=== PATIENT | male | born 1980 | race African-American/Black ===

== ENCOUNTER 2016-12-11 17:42 | Inpatient (IN) | payer OTHER ==
[~2016-12-11] VITALS: Ht 175.3 cm; Wt 113.0 kg
[~2016-12-11 17:42] MED LIST: IBUP600T26 PO; MELO7.5; Z.0.NO CURRENT MEDS
[2016-12-11 18:10] VITALS: BP 174/109; PULSE 112; RESP 18; TEMP 100; O2SAT 97
--- NOTE | 2016-12-11 18:35 | PD ---
HPI Chief Complaint: Psychiatric Symptoms Time Seen by Provider: 18:35 Travel History International Travel<30 days: No Contact w/Intl Traveler<30days: No Traveled to known affect area: No History of Present Illness HPI 36-year-old male with history of bipolar disorder and paranoia, presents to the emergency department under an exparte for evaluation. Per report, patient has been having increasingly bizarre behavior. Patient states that he is a child of God and has found the grijalva to unlock the Bible. He tells me he is here to "save us." Denies suicidal or homicidal ideations. Patient denies a psychiatric history and states he is not to take any medication. Denies any acute medical needs. Denies illicit drug use or alcohol consumption. Patient has no other symptoms to report. PFSH Past Medical History Medical History: Unable to Obtain Bipolar Disorder: Yes Diminished Hearing: No Immunizations Current: No Tetanus Vaccination: Unknown Past Surgical History Surgical History: Unable to Obtain Social History Alcohol Use: No (UTO) Tobacco Use: Yes (UTO) Substance Use: No (UTO) Allergies-Medications (Allergen,Severity, Reaction): Coded Allergies: No Known Allergies (Verified , 12/11/16) Reported Meds & Prescriptions Reported Meds & Active Scripts Active Active Prescriptions or Reported Medications Unobtainable Review of Systems ROS Limitations: Psychotic Except as stated in HPI: all other systems reviewed are Neg Physical Exam Exam Limitations: Psychotic Narrative GENERAL: Well-nourished male patient, ambulatory and in no acute distress SKIN: Focused skin assessment warm/dry. HEAD: Atraumatic. Normocephalic. EYES: Pupils equal and round. No scleral icterus. No injection or drainage. ENT: No nasal bleeding or discharge. Mucous membranes pink and moist. NECK: Trachea midline. No JVD. CARDIOVASCULAR: Regular rate and rhythm. No murmur appreciated. RESPIRATORY: No accessory muscle use. Clear to auscultation. Breath sounds equal bilaterally. GASTROINTESTINAL: Abdomen soft, non-tender, nondistended. Hepatic and splenic margins not palpable. MUSCULOSKELETAL: No obvious deformities. No clubbing. No cyanosis. No edema. NEUROLOGICAL: Awake and alert. No obvious cranial nerve deficits. Motor grossly within normal limits. Normal speech. PSYCHIATRIC: Bizarre affect and mood Data Data Last Documented VS Vital Signs Date Time Temp Pulse Resp B/P Pulse Ox O2 Delivery O2 Flow Rate FiO2 12/11/16 18:10 100.0 112 18 174/109 97 Orders Complete Blood Count With Diff (12/11/16 18:33) Basic Metabolic Panel (Bmp) (12/11/16 18:33) Psych Screen (12/11/16 18:33) Drug Screen, Random Urine (12/11/16 18:33) Alcohol (Ethanol) (12/11/16 18:33) Olanzapine Inj (Zyprexa Inj) (12/11/16 20:45) Olanzapine Inj (Zyprexa Inj) (12/11/16 20:44) Labs Laboratory Tests Test 12/11/16 18:47 White Blood Count 11.8 TH/MM3 Red Blood Count 6.08 MIL/MM3 Hemoglobin 18.5 GM/DL Hematocrit 52.3 % Mean Corpuscular Volume 86.1 FL Mean Corpuscular Hemoglobin 30.5 PG Mean Corpuscular Hemoglobin 35.4 % Concent Red Cell Distribution Width 14.2 % Platelet Count 231 TH/MM3 Mean Platelet Volume 9.2 FL Neutrophils (%) (Auto) 77.7 % Lymphocytes (%) (Auto) 14.7 % Monocytes (%) (Auto) 6.9 % Eosinophils (%) (Auto) 0.1 % Basophils (%) (Auto) 0.6 % Neutrophils # (Auto) 9.2 TH/MM3 Lymphocytes # (Auto) 1.7 TH/MM3 Monocytes # (Auto) 0.8 TH/MM3 Eosinophils # (Auto) 0.0 TH/MM3 Basophils # (Auto) 0.1 TH/MM3 CBC Comment DIFF FINAL Differential Comment Sodium Level 137 MEQ/L Potassium Level 3.8 MEQ/L Chloride Level 103 MEQ/L Carbon Dioxide Level 21.7 MEQ/L Anion Gap 12 MEQ/L Blood Urea Nitrogen 20 MG/DL Creatinine 1.38 MG/DL Estimat Glomerular Filtration 71 ML/MIN Rate Random Glucose 107 MG/DL Calcium Level 9.7 MG/DL Ethyl Alcohol Level 8 MG/DL [facility] Medical Decision Making Medical Screen Exam Complete: Yes Emergency Medical Condition: Yes Medical Record Reviewed: Yes Differential Diagnosis Mood disorder versus personality disorder versus adjustment reaction disorder versus substance abuse Narrative Course 36-year-old male presents to the emergency department for psychiatric evaluation. Patient has a bizarre affect and behavior. His moods are labile here in the emergency department. He is not cooperative and unwilling to change into emergency department clothing. CBC is without acute concern. BMP is with BUN at 20, creatinine 1.38, GFR 71. Patient is encouraged to take by mouth fluids. EtOH is 8. Tox screen is ordered however has not been completed yet. Patient is medically cleared to undergo psychiatric screening for further evaluation and disposition. Mental health screening discussed with the patient. Psychiatric screen ordered. Diagnosis Primary Impression: Psychoses Qualified Code: F29 - Psychosis, unspecified psychosis type Scripts Unable to Obtain Active Prescriptions or Reported Meds Condition: Ana Maria Browning Dec 11, 2016 18:35
[2016-12-11 19:11] LABS: AUTOMATED NEUTROPHIL # 9.2 TH/MM3 (1.8-7.7); BASOPHIL # 0.1 TH/MM3 (0-0.2); BASOPHIL % 0.6 % (0.0-2.0); EOSINOPHIL % 0.1 % (0.0-4.0); HEMATOCRIT 52.3 % (39.0-51.0); HEMO FLAGS DIFF FINAL; LYMPH % 14.7 % (9.0-44.0); LYMPHOCYTE # 1.7 TH/MM3 (1.0-4.8); MEAN CELL VOLUME 86.1 FL (80.0-100.0); MEAN CORPUSCULAR HEMOGLOBIN 30.5 PG (27.0-34.0); MEAN CORPUSCULAR HGB CONC 35.4 % (32.0-36.0); MONO % 6.9 % (0.0-8.0); NEUT % 77.7 % (16.0-70.0); PLATELET COUNT 231 TH/MM3 (150-450); RED BLOOD COUNT 6.08 MIL/MM3 (4.50-5.90); RED CELL DISTRIBUTION WIDTH 14.2 % (11.6-17.2); WHITE BLOOD COUNT 11.8 TH/MM3 (4.0-11.0)
[2016-12-11 20:05] LABS: BICARBONATE 21.7 MEQ/L (21.0-32.0); POTASSIUM 3.8 MEQ/L (3.5-5.1)
[2016-12-11] MEDS ORDERED: OLANZapine IM 10 MG VIAL IM ONE ×2 (20:44→20:45)
[2016-12-11 22:36] VITALS: BP 121/60; PULSE 86; RESP 18; O2SAT 97
[2016-12-12 02:05] VITALS: BP 128/78; PULSE 62; RESP 16; O2SAT 97
[2016-12-12 06:00] VITALS: BP 161/104; PULSE 87; RESP 18; O2SAT 96
[2016-12-12 10:16] VITALS: BP 160/82; PULSE 106; RESP 20; O2SAT 90
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
[2016-12-12] MEDS ORDERED: ALUMINUM/MAGNESIUM/SIMETH 30 ML CUP PO PRN (12:00)
[2016-12-12] MEDS ORDERED: ACETAMINOPHEN 325 MG TAB PO PRN (12:00)
[2016-12-12] MEDS ORDERED: MAGNESIUM HYDROXIDE SUSP 30 ML CUP PO PRN (12:00)
[2016-12-12 12:22] VITALS: BP 139/95; PULSE 90; RESP 16; TEMP 98.7; O2SAT 97
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
[2016-12-12] MEDS ORDERED: LORazepam 2 MG TAB PO PRN (14:00)
[2016-12-12] MEDS ORDERED: OLANZapine IM 10 MG VIAL IM PRN (14:00)
[2016-12-12] MEDS ORDERED: LORazepam 1 MG TAB PO PRN (14:00)
[2016-12-12] MEDS ORDERED: LORazepam 2 MG/ML VIAL IV PUSH PRN ×4 (14:00)
[2016-12-12] MEDS ORDERED: BENZTROPINE MESYLATE 1 MG TAB PO PRN (14:00)
[2016-12-12] MEDS ORDERED: BENZTROPINE MESYLATE 2 MG/2 ML VIAL IM PRN (14:00)
[2016-12-12] MEDS ORDERED: FLUMAZENIL 0.5 MG/5 ML VIAL IV PUSH PRN (14:00)
[2016-12-12] MEDS: LORazepam 2 MG/ML VIAL IM PRN (16:58)
[2016-12-12] MEDS: HALOPERIDOL LACTATE 5 MG/ML AMP IM PRN (16:58)
[2016-12-12 18:00] VITALS: BP 144/83; PULSE 84; RESP 18; TEMP 97.7; O2SAT 96
[2016-12-12 18:18] LABS: AMPHETAMINE, URINE NEG (NEG); BARBITURATES, URINE NEG (NEG)
[2016-12-12 18:19] LABS: COCAINE, URINE NEG (NEG)
[2016-12-12] MEDS: OLANZapine ODT 15 MG TAB PO SCH (21:00)
[2016-12-13 05:56] VITALS: BP 129/68; PULSE 80; RESP 16; TEMP 97.7; O2SAT 99
[2016-12-13] MEDS: FOLIC ACID 1 MG TAB PO SCH (09:18)
[2016-12-13] MEDS: THIAMINE HCL 100 MG TAB PO SCH (09:18)
--- NOTE | 2016-12-13 09:55 | HHI.PYPN ---
Subjective Remarks Patient seen and examined. Chart reviewed. Case discussed with nursing staff. The patient required a Haldol and Ativan PRN yesterday in the early evening secondary to agitation/threatening behavior (see associated nursing note). Per nursing staff, the patient was subsequently no behavioral problem but unfortunately was not administered his Zyprexa, reportedly due to sedation. On my examination today, the patient remains frantic to be discharged. He says that he feels like he is "being robbed and held hostage." Thought process is fairly tangential, and he rambles for a time about feeling "very spiritual and everybody is color blind." Some punning and odd wordplay noted. For example, when I ask if he has been smoking cannabis in addition to cigarettes he says "I' ve been smoking too, I've been spoken to" pointing upward to the heavens. No side effects from medications. No physical complaints. Review of Systems ROS Limitations: Psychotic, Poor Historian Except as stated in HPI: all other systems reviewed are Neg Objective Alert: Yes [place]: Person, Place, Date Mood: Anxious Affect: Labile Memory Intact: Comment (not formally assessed) Hallucinations: Other (possibly some degree of audiovisual hallucinations) Delusions: Yes Delusion Type: Grandiose, Paranoid Suicidal: Ideation (no SI) Homicidal: Ideation (no HI) Insight/Judgment Poor Remarks No signs of GABAergic withdrawal noted. CIWA scores minimal. No motor abnormalities noted. Thought process tangential. Speech somewhat rambling and pressured. Grooming and hygiene fair at best. Labs Labs reviewed. EKG noted to be sinus rhythm with a QTc of 391 ms. Vitals/IOs Vital Signs Date Time Temp Pulse Resp B/P Pulse Ox O2 Delivery O2 Flow Rate FiO2 12/13/16 05:56 97.7 80 16 129/68 99 12/12/16 10:16 Room Air Assessment & Plan Problem List: (1) Bipolar disorder, current episode mixed, severe, with psychotic features ICD Code: F31.64 (2) Cannabis abuse ICD Code: F12.10 Assessment & Plan Adjust Zyprexa dosing to 1800 hrs. so that this medication can be administered by the day staff. Plan to continue to titrate this agent to effect. Continue CIWA with Ativan although this may be able to be discontinued within the next day or 2 as the patient has no signs of withdrawal. Continue to monitor on the inpatient unit. Continue other medications and care as ordered. Justification for Cont. Inpt. Impairment in reality construction. Medication changes planned. High risk for decompensation in a less restrictive environment. Discharge Planning Pending psychiatric stabilization. Request HC Surrog/Guard Advoc?: Yes Denis Lund MD Dec 13, 2016 09:55
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
[2016-12-13] MEDS ORDERED: OLANZapine IM 10 MG VIAL IM PRN (18:00)
[2016-12-13] MEDS ORDERED: OLANZapine ODT 15 MG TAB PO SCH (18:00)
[2016-12-13 18:09] VITALS: BP 164/86; PULSE 91; RESP 18; TEMP 98.1; O2SAT 97
--- NOTE | 2016-12-13 19:16 | EKG ---
Date Performed: 12/12/2016 Time Performed: 18:27:10 PTAGE: 36 years EKG: Sinus rhythm NORMAL ECG PREVIOUS TRACING : 06/22/2001 16.01 Compared to prior tracing no significant change DOCTOR: Michele Woods Interpretating Date/Time 12/13/2016 19:15:09
[2016-12-13] MEDS: ZOLPIDEM TARTRATE 5 MG TAB PO PRN ×2 (21:49→23:33)
[2016-12-14 06:05] VITALS: BP 110/58; PULSE 83; RESP 17; TEMP 97.2; O2SAT 99
[2016-12-14] MEDS: LORazepam 2 MG TAB PO PRN (08:49)
[2016-12-14] MEDS: FOLIC ACID 1 MG TAB PO SCH (08:49)
[2016-12-14] MEDS: THIAMINE HCL 100 MG TAB PO SCH (08:49)
[2016-12-14 08:55] VITALS: BP 138/79; PULSE 90; RESP 17; O2SAT 97
--- NOTE | 2016-12-14 09:48 | HHI.PYPN ---
Subjective Remarks Patient seen and examined with nurse. Chart reviewed. Case discussed with nursing staff who reports the patient remains quite paranoid. When given his medications, patient reportedly traced the shape and imprints of each tab. He also wrote a long, rambling writ of habeas, which I have reviewed in part. On my examination today, patient is internally stimulated. Thought process remains tangential. He says, "I'm humble. This is all I am doing on the outside and it's scaring the living daylights out of people." He says that he needs to keep "sunglasses on because all the world has done." He believes that the water fountain on the unit and the food is "poisoned, it'll eat your face off." He believes that the staff are contaminated with poison, too. Despite this belief, he is eating 100% of meals. Affect is somewhat expansive, and he says that he has a "beautiful mind, beautiful smile, beautiful dreams, etc." Denies side effects from medications. No physical complaints. Review of Systems ROS Limitations: Psychotic, Poor Historian Except as stated in HPI: all other systems reviewed are Neg Objective Alert: Yes [place]: Person, Place, Date Mood: Other (elevated) Affect: Other (expansive) Memory Intact: Comment (not formally assessed) Hallucinations: Other (Int stim) Delusions: Yes Delusion Type: Grandiose, Paranoid Suicidal: Ideation (no SI) Homicidal: Ideation (no HI) Insight/Judgment Poor Remarks No motor abnormalities noted. Thought process tangential. Speech rambling and a little bit pressured. Grooming and hygiene fair at best. Labs Labs reviewed. CBC from today unremarkable. CMP from today unremarkable besides mild hyperbilirubinemia. TSH within normal limits. Hemoglobin A1c pending. Vitals/IOs Vital Signs Date Time Temp Pulse Resp B/P Pulse Ox O2 Delivery O2 Flow Rate FiO2 12/14/16 08:55 90 17 138/79 97 12/14/16 06:05 97.2 12/12/16 10:16 Room Air Assessment & Plan Problem List: (1) Bipolar disorder, current episode mixed, severe, with psychotic features ICD Code: F31.64 (2) Cannabis abuse ICD Code: F12.10 Assessment & Plan Titrate Zyprexa to 10 mg twice daily with IM backup. To consider addition of a mood stabilizer. Continue to monitor on high acuity unit. Continue other medications and care as ordered. Justification for Cont. Inpt. Impairment in reality construction. Medication changes and process. High risk for decompensation in a less restrictive environment. Discharge Planning Pending psychiatric stabilization. Request HC Surrog/Guard Advoc?: Yes Denis Lund MD Dec 14, 2016 09:48
[2016-12-14 10:40] LABS: AUTOMATED NEUTROPHIL # 5.9 TH/MM3 (1.8-7.7); BASOPHIL % 0.4 % (0.0-2.0); EOSINOPHIL # 0.1 TH/MM3 (0-0.4); EOSINOPHIL % 1.8 % (0.0-4.0); HEMATOCRIT 48.4 % (39.0-51.0); HEMO FLAGS DIFF FINAL; LYMPH % 17.2 % (9.0-44.0); LYMPHOCYTE # 1.4 TH/MM3 (1.0-4.8); MEAN CELL VOLUME 87.1 FL (80.0-100.0); MEAN CORPUSCULAR HEMOGLOBIN 29.9 PG (27.0-34.0); MEAN CORPUSCULAR HGB CONC 34.4 % (32.0-36.0); MONO % 7.8 % (0.0-8.0); NEUT % 72.8 % (16.0-70.0); PLATELET COUNT 195 TH/MM3 (150-450); RED BLOOD COUNT 5.55 MIL/MM3 (4.50-5.90); RED CELL DISTRIBUTION WIDTH 13.8 % (11.6-17.2); WHITE BLOOD COUNT 8.1 TH/MM3 (4.0-11.0)
[2016-12-14] MEDS: OLANZapine ODT 10 MG TAB PO SCH ×2 (10:49→18:47)
[2016-12-14 11:13] LABS: ALT (GPT) 29 U/L (12-78); ANION GAP 8 MEQ/L (5-15); AST (GOT) 17 U/L (15-37); BICARBONATE 24.9 MEQ/L (21.0-32.0); BLOOD UREA NITROGEN 21 MG/DL (7-18); CHLORIDE 103 MEQ/L (98-107); GLOMERULAR FILTRATION RATE 88 ML/MIN (>89); POTASSIUM 3.8 MEQ/L (3.5-5.1); SODIUM (NA) 136 MEQ/L (136-145); TOTAL BILIRUBIN ADULT 1.5 MG/DL (0.2-1.0)
[2016-12-14 11:20] LABS: ALKALINE PHOSPHATASE 103 U/L (45-117); HDL CHOLESTEROL 56.3 MG/DL (40.0-60.0); LDL CHOLESTEROL 110 MG/DL (0-99)
[2016-12-14] MEDS: NICOTINE 21 MG/24 HR PATCH T-DERMAL SCH (13:00)
[2016-12-14 15:55] VITALS: BP 154/84; PULSE 84; RESP 17; TEMP 97.9; O2SAT 99
[2016-12-14 16:22] LABS: HEMOGLOBIN A1a 0.9 %; HEMOGLOBIN A1b 1.5 %; HEMOGLOBIN Ao 86.6 %; HEMOGLOBIN LA1C 1.9 %; HEMOGLOBIN P3 3.6 %
[2016-12-14] MEDS ORDERED: OLANZapine IM 10 MG VIAL IM PRN (18:00)
[2016-12-14 20:14] VITALS: BP 151/84; PULSE 101
[2016-12-14] MEDS: ZOLPIDEM TARTRATE 5 MG TAB PO PRN ×2 (22:19→23:52)
[2016-12-15 06:13] VITALS: BP 127/59; PULSE 69; RESP 16; TEMP 97.5; O2SAT 98
[2016-12-15] MEDS: FOLIC ACID 1 MG TAB PO SCH (09:00)
[2016-12-15] MEDS: NICOTINE 21 MG/24 HR PATCH T-DERMAL SCH (09:00)
[2016-12-15] MEDS: THIAMINE HCL 100 MG TAB PO SCH (09:00)
[2016-12-15] MEDS: REMOVE OLD PATCH T-DERMAL SCH (09:00)
[2016-12-15] MEDS: OLANZapine ODT 10 MG TAB PO SCH ×2 (09:00→18:00)
--- NOTE | 2016-12-15 10:26 | HHI.PYPN ---
Subjective Remarks Patient seen and examined with nurse and counselor. Chart reviewed. Case discussed with nursing staff who reports that the patient is somewhat less paranoid and more redirectable today. On my examination today, the patient remains fairly buoyant and his affect expansive. His speech is rambling and he includes a lot of extraneous details regarding the fear of poisoning he says "I' m going to leave that one alone." Makes odd statements about his numerous tattoos being camouflage. Says that his mood is "fantastic" but also describes himself as "physically disabled." When I ask about side effects from medications, patient makes a hand gesture and says, "Mmmm. Bap bap bap." He believes that the medication is causing his brain to move and strike the skull, making the sound he produces. Review of Systems ROS Limitations: Psychotic, Poor Historian Except as stated in HPI: all other systems reviewed are Neg Objective Alert: Yes [place]: Person, Place, Date Mood: Other ("fantastic") Affect: Other (expansive) Memory Intact: Comment (Not assessed) Hallucinations: Other (Remains int stim) Delusions: Yes Delusion Type: Grandiose, Paranoid Suicidal: Ideation (No SI) Homicidal: Ideation (No HI) Insight/Judgment Poor Remarks No abnormal motor movements noted. Thought process somewhat scattered with loosening of associations. Grooming and hygiene fair. Labs Test 12/14/16 10:31 White Blood Count 8.1 TH/MM3 Red Blood Count 5.55 MIL/MM3 Hemoglobin 16.6 GM/DL Hematocrit 48.4 % Mean Corpuscular Volume 87.1 FL Mean Corpuscular Hemoglobin 29.9 PG Mean Corpuscular Hemoglobin 34.4 % Concent Red Cell Distribution Width 13.8 % Platelet Count 195 TH/MM3 Mean Platelet Volume 8.9 FL Neutrophils (%) (Auto) 72.8 % Lymphocytes (%) (Auto) 17.2 % Monocytes (%) (Auto) 7.8 % Eosinophils (%) (Auto) 1.8 % Basophils (%) (Auto) 0.4 % Neutrophils # (Auto) 5.9 TH/MM3 Lymphocytes # (Auto) 1.4 TH/MM3 Monocytes # (Auto) 0.6 TH/MM3 Eosinophils # (Auto) 0.1 TH/MM3 Basophils # (Auto) 0.0 TH/MM3 CBC Comment DIFF FINAL Differential Comment Sodium Level 136 MEQ/L Potassium Level 3.8 MEQ/L Chloride Level 103 MEQ/L Carbon Dioxide Level 24.9 MEQ/L Anion Gap 8 MEQ/L Blood Urea Nitrogen 21 MG/DL Creatinine 1.15 MG/DL Estimat Glomerular Filtration 88 ML/MIN Rate Random Glucose 85 MG/DL Hemoglobin A1c 5.0 % Calcium Level 8.6 MG/DL Total Bilirubin 1.5 MG/DL Aspartate Amino Transf 17 U/L (AST/SGOT) Alanine Aminotransferase 29 U/L (ALT/SGPT) Alkaline Phosphatase 103 U/L Total Protein 8.2 GM/DL Albumin 4.0 GM/DL Triglycerides Level 103 MG/DL Cholesterol Level 187 MG/DL LDL Cholesterol 110 MG/DL HDL Cholesterol 56.3 MG/DL Cholesterol/HDL Ratio 3.32 RATIO Thyroid Stimulating Hormone 0.649 uIU/ML 3rd Gen Labs reviewed. Leukocytosis resolved. TSH within normal limits. GFR improved. Vitals/IOs Vital Signs Date Time Temp Pulse Resp B/P Pulse Ox O2 Delivery O2 Flow Rate FiO2 12/15/16 06:13 97.5 69 16 127/59 98 12/12/16 10:16 Room Air Assessment & Plan Problem List: (1) Bipolar disorder, current episode mixed, severe, with psychotic features ICD Code: F31.64 (2) Cannabis abuse ICD Code: F12.10 Assessment & Plan Add Depakote DR 500mg BID for mood stabilization. Check a VPA and ammonia level beginning of next week. Continue Zyprexa 10mg BID PO/IM. Justification for Cont. Inpt. Impairment in reality construction. Medication changes in process. High risk for decompensation in a less restrictive environment. Discharge Planning Anticipate the patient will require approximately 5-7 additional inpatient days. Request HC Surrog/Guard Advoc?: Yes Denis Lund MD Dec 15, 2016 10:26
[2016-12-15 17:00] VITALS: BP 123/58; PULSE 87; RESP 16; TEMP 97.1; O2SAT 99
[2016-12-15] MEDS: IBUPROFEN 600 MG TAB PO PRN (19:53)
[2016-12-15] MEDS: DIVALPROEX DR 500 MG TABEC PO SCH ×2 (21:00→21:20)
[2016-12-15] MEDS: ZOLPIDEM TARTRATE 5 MG TAB PO PRN ×2 (21:20→22:27)
[2016-12-16 06:04] VITALS: BP 110/55; PULSE 80; RESP 16; TEMP 97.6; O2SAT 98
[2016-12-16] MEDS: DIVALPROEX DR 500 MG TABEC PO SCH ×3 (08:26→21:25)
[2016-12-16] MEDS: FOLIC ACID 1 MG TAB PO SCH (08:26)
[2016-12-16] MEDS: OLANZapine ODT 10 MG TAB PO SCH ×2 (08:26→17:47)
[2016-12-16] MEDS: NICOTINE 21 MG/24 HR PATCH T-DERMAL SCH (08:27)
[2016-12-16] MEDS: THIAMINE HCL 100 MG TAB PO SCH (08:27)
[2016-12-16] MEDS: REMOVE OLD PATCH T-DERMAL SCH (09:00)
[2016-12-16] MEDS: HALOPERIDOL LACTATE 5 MG/ML AMP IM PRN (12:07)
[2016-12-16] MEDS: LORazepam 2 MG/ML VIAL IM PRN (12:07)
--- NOTE | 2016-12-16 16:39 | HHI.PYPN ---
Subjective Remarks Patient was seen and case discussed with nursing. Patient received an ETO this morning for yelling and aggressive behavior. Per nursing he has been delusional and paranoid believing that his food is being poisoned. He confirms these delusions and others during the interview. He is elevated intrusive and demanding. Has very poor insight into his admission and does not understand why we are not discharging him. Continues to refuse Depakote. Was offered options of different mood stabilizers including lithium but also refuse that. Objective Alert: Yes [place]: Person, Place, Date Mood: Oppositional, Other ("fantastic") Affect: Labile, Other (expansive) Memory Intact: Comment (Not assessed) Hallucinations: Other (Remains int stim) Delusions: Yes Delusion Type: Grandiose, Paranoid Suicidal: Ideation (No SI) Homicidal: Ideation (No HI) Insight/Judgment Poor Vitals/IOs Vital Signs Date Time Temp Pulse Resp B/P Pulse Ox O2 Delivery O2 Flow Rate FiO2 12/16/16 06:04 97.6 80 16 110/55 98 12/12/16 10:16 Room Air Assessment & Plan Problem List: (1) Bipolar disorder, current episode mixed, severe, with psychotic features ICD Code: F31.64 (2) Cannabis abuse ICD Code: F12.10 Assessment & Plan Continue current treatment plan Justification for Cont. Inpt. Patient will decompensate in a less restrictive setting Request HC Surrog/Guard Advoc?: Yes Matthew Bunch DO Dec 16, 2016 16:39
[2016-12-16 17:00] VITALS: BP 134/81; PULSE 86; RESP 17; TEMP 98.5; O2SAT 97
[2016-12-16] MEDS: ZOLPIDEM TARTRATE 5 MG TAB PO PRN ×2 (21:25→22:08)
[2016-12-16] MEDS: LORazepam 2 MG TAB PO PRN (22:09)
[2016-12-17 05:53] VITALS: BP 105/59; PULSE 75; RESP 18; TEMP 98; O2SAT 98
[2016-12-17] MEDS: IBUPROFEN 600 MG TAB PO PRN (08:50)
[2016-12-17] MEDS: THIAMINE HCL 100 MG TAB PO SCH (08:50)
[2016-12-17] MEDS: DIVALPROEX DR 500 MG TABEC PO SCH ×2 (08:50→21:00)
[2016-12-17] MEDS: NICOTINE 21 MG/24 HR PATCH T-DERMAL SCH (08:50)
[2016-12-17] MEDS: OLANZapine ODT 10 MG TAB PO SCH ×2 (08:50→17:35)
[2016-12-17] MEDS: LORazepam 2 MG TAB PO PRN ×2 (08:50→21:17)
[2016-12-17] MEDS: FOLIC ACID 1 MG TAB PO SCH (08:51)
[2016-12-17] MEDS: REMOVE OLD PATCH T-DERMAL SCH (08:53)
--- NOTE | 2016-12-17 16:33 | HHI.PYPN ---
Subjective Remarks Patient was seen and case discussed with nursing. Patient is markedly less psychotic today. He is no longer perseverative and intrusive. No longer thinks that the food or water water fountain is poisoned. 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 Seen playing basketball and interacting with others Objective Alert: Yes [place]: Person, Place, Date Mood: Calm Affect: Labile, Other (expansive) Memory Intact: Comment (Not assessed) Hallucinations: Other (Remains int stim) Delusions: Yes Delusion Type: Grandiose, Paranoid Suicidal: Ideation (No SI) Homicidal: Ideation (No HI) Insight/Judgment Poor Vitals/IOs Vital Signs Date Time Temp Pulse Resp B/P Pulse Ox O2 Delivery O2 Flow Rate FiO2 12/17/16 05:53 98.0 75 18 105/59 98 Assessment & Plan Problem List: (1) Bipolar disorder, current episode mixed, severe, with psychotic features ICD Code: F31.64 (2) Cannabis abuse ICD Code: F12.10 Assessment & Plan Continue current treatment plan Justification for Cont. Inpt. Patient will decompensate in a less restrictive setting Request HC Surrog/Guard Advoc?: Yes Matthew Bunch DO Dec 17, 2016 16:33
[2016-12-17 19:45] VITALS: BP 102/58; PULSE 73; RESP 18; TEMP 97.2; O2SAT 99
[2016-12-17] MEDS: ZOLPIDEM TARTRATE 5 MG TAB PO PRN (21:17)
[2016-12-18 05:42] VITALS: BP 118/60; PULSE 62; RESP 17; TEMP 97.2; O2SAT 97
[2016-12-18] MEDS: FOLIC ACID 1 MG TAB PO SCH (08:47)
[2016-12-18] MEDS: THIAMINE HCL 100 MG TAB PO SCH (08:47)
[2016-12-18] MEDS: OLANZapine ODT 10 MG TAB PO SCH (08:47)
[2016-12-18] MEDS: REMOVE OLD PATCH T-DERMAL SCH (08:48)
[2016-12-18] MEDS: NICOTINE 21 MG/24 HR PATCH T-DERMAL SCH (08:48)
[2016-12-18] MEDS: DIVALPROEX DR 500 MG TABEC PO SCH ×2 (08:48→20:55)
[2016-12-18] MEDS: HALOPERIDOL LACTATE 5 MG/ML AMP IM PRN ×2 (10:09→17:48)
[2016-12-18 10:21] LABS: BATH SALTS (MDPV) UR NEG (NEG); ECSTASY (MDMA) UR NEG (NEG); GABAPENTIN UR NEG (NEG); HEROIN (6-ACETYLMORPHINE) UR NEG (NEG); HYDROMORPHONE U NEG (NEG); K2 SPICE UR NEG (NEG); OBMETHADONE UR NEG (NEG); OXYCODONE (PERCODAN) NEG (NEG); PHENCYCLIDINE URINE NEG (NEG)
--- NOTE | 2016-12-18 11:20 | HHI.PYPN ---
Subjective Remarks Patient seen and examined with nurse. Chart reviewed. Case discussed with nursing staff. On my examination today, patient is quite discharge focused. He gets quite irritated when I explain, after speaking with him, that he is not stable enough for safe discharge, although he is able to refrain from physical aggression. Thought process remains quite loose. He says that he and his mother are "very spiritual people. When we protest people listen." He then gestures to a tattoo on his forearm and says that this is "camouflage" that allows him to walk places that I and others cannot. In context, this material seems quite psychotic. He also rambles about the government being infiltrated. He says that he no longer believes his food is poisoned. No side effects from medications. No physical complaints. Review of Systems ROS Limitations: Psychotic, Poor Historian Except as stated in HPI: all other systems reviewed are Neg Objective Alert: Yes [place]: Person, Place, Date Mood: Anxious Affect: Labile Memory Intact: Comment (Not formally assessed today) Hallucinations: Other (internally preoccupied) Delusions: Yes Delusion Type: Grandiose, Paranoid Suicidal: Ideation (No SI) Homicidal: Ideation (No HI) Insight/Judgment Poor Remarks No motor abnormalities noted. Speech somewhat rambling. Thought process with significant loosening of associations. Grooming and hygiene fair. Labs Labs reviewed. Extended urine toxicology screen negative. Vitals/IOs Vital Signs Date Time Temp Pulse Resp B/P Pulse Ox O2 Delivery O2 Flow Rate FiO2 12/18/16 05:42 97.2 62 17 118/60 97 Assessment & Plan Problem List: (1) Bipolar disorder, current episode mixed, severe, with psychotic features ICD Code: F31.64 (2) Cannabis abuse ICD Code: F12.10 Assessment & Plan Titrate Zyprexa to 15 mg twice daily for psychosis and mood stabilization. Patient refused his for several doses of Depakote, and so I will adjust the timing of the Depakote level accordingly. Continue to monitor on the high acuity unit. Continue other medications and care as ordered. Justification for Cont. Inpt. Impairment in reality construction. Medication changes in process. High risk for decompensation in a less restrictive environment. Discharge Planning Pending psychiatric stabilization Request HC Surrog/Guard Advoc?: Yes Denis Lund MD Dec 18, 2016 11:20
[2016-12-18] MEDS: SODIUM CHLORIDE 0.65% NASAL SPRAY 45 ML BTL EACH NARE PRN (17:38)
[2016-12-18] MEDS: OLANZapine ODT 15 MG TAB PO SCH (17:38)
[2016-12-18 17:53] VITALS: BP 140/81; PULSE 76; RESP 17; TEMP 98.1; O2SAT 99
[2016-12-18] MEDS: ZOLPIDEM TARTRATE 5 MG TAB PO PRN (20:56)
[2016-12-19 05:48] VITALS: BP 124/72; PULSE 66; RESP 18; TEMP 98.1; O2SAT 100
[2016-12-19] MEDS: NICOTINE 21 MG/24 HR PATCH T-DERMAL SCH (09:00)
[2016-12-19] MEDS: REMOVE OLD PATCH T-DERMAL SCH (09:00)
[2016-12-19] MEDS: OLANZapine ODT 15 MG TAB PO SCH ×2 (09:00→18:00)
[2016-12-19] MEDS: DIVALPROEX DR 500 MG TABEC PO SCH ×2 (09:05→21:02)
[2016-12-19] MEDS: THIAMINE HCL 100 MG TAB PO SCH (09:05)
[2016-12-19] MEDS: FOLIC ACID 1 MG TAB PO SCH (09:05)
[2016-12-19] MEDS: LORazepam 2 MG TAB PO PRN (12:31)
--- NOTE | 2016-12-19 13:47 | PD.TTN ---
Present for Treatment Team Treatment Team Staff: Provider (Dr. Lund), Nurse (Veronica Mohr RN), Psych Therapist (ANDREA Metcalf), Occupational Therapist (JEAN-CLAUDE Moore) Patient Problems 1. Discharge planning 2. Medication compliance 3. Knowledge deficit 4. Lack of coping skills Progress Toward Goals Provider Input: Pt appears to be showing progress on medication regiment but presents with some difficulty with regard to linear nature of thoughts. Nurse Input: Pt presents with no aggression, appears more organized, with less racing thoughts, is compliant with medication regiment and presents as no behavioral problem on unit. Psych Therapist Input: Pt appears somewhat disorganized and bizarre in thoughts but shows improvement overall including in coping skills, insight into condition and willingness to be cooperative with treatment. Pt denies any auditory hallucinations, mood symptoms or suicidal thoughts. Occupational Therapist Input: Pt attends groups regularly, is appropriate and interacts with peers well. Documentation Scribe: ANDREA Metcalf Date Resolved: Dec 19, 2016 Abe Broussard Dec 19, 2016 13:47
--- NOTE | 2016-12-19 15:15 | HHI.PYPN ---
Subjective Remarks Patient seen and examined with counselor and nurse. Chart reviewed. Case discussed in treatment team with nurse, counselor and occupational therapist. Per nursing staff, the patient is clearing up and becoming more organized. He has been no behavioral problem overnight. Counselor has reached out the patient 's mother who likewise feels he is improving and would feel comfortable excepting the patient home tomorrow, Sunday. On my examination today, patient is in good spirits. Mood seems fairly stable. Thought process remains a little loose/circumstantial, especially with prolonged questioning but overall much more linear versus admission. He denies any suicidal or homicidal ideation. Denies any audiovisual hallucinations. Denies side effects from medications. No physical complaints. Remains somewhat discharge focused. Review of Systems Except as stated in HPI: all other systems reviewed are Neg Objective Alert: Yes [place]: Person, Place, Date Mood: Calm Affect: Appropriate, Euthymic Memory Intact: Comment (intact on clinical exam) Hallucinations: Other (Denies AVH) Delusions: No Delusion Type: Other (No margarita delusions) Suicidal: Ideation (Denies SI) Homicidal: Ideation (Denies HI) Insight/Judgment Perhaps improving Remarks No motor abnormalities noted. Thought process more linear as noted above. Speech more coherent and logical. Grooming and hygiene fair. Labs Labs reviewed. No new labs. Vitals/IOs Vital Signs Date Time Temp Pulse Resp B/P Pulse Ox O2 Delivery O2 Flow Rate FiO2 12/19/16 05:48 98.1 66 18 124/72 100 Assessment & Plan Problem List: (1) Bipolar disorder, current episode mixed, severe, with psychotic features ICD Code: F31.64 (2) Cannabis abuse ICD Code: F12.10 Assessment & Plan Patient seems to be improving with Zyprexa/Depakote combination, and I will continue these as ordered. I will adjust timing of Depakote level II tomorrow morning given probable plan for discharge then, and that should likely give a reasonable approximation of his steady state Depakote level. Continue to monitor on the inpatient unit. Continue other medications and care as ordered. Justification for Cont. Inpt. Discharge planning Discharge Planning Anticipate discharge home tomorrow barring some clinical deterioration Request HC Surrog/Guard Advoc?: Yes Denis Lund MD Dec 19, 2016 15:15
[2016-12-19 18:49] VITALS: BP 139/63; PULSE 82; RESP 18; TEMP 99.1; O2SAT 98
[2016-12-19] MEDS: ZOLPIDEM TARTRATE 5 MG TAB PO PRN (21:04)
[2016-12-19] MEDS: SODIUM CHLORIDE 0.65% NASAL SPRAY 45 ML BTL EACH NARE PRN (21:05)
[2016-12-20 05:57] VITALS: BP 123/76; PULSE 67; RESP 15; TEMP 97; O2SAT 67
[2016-12-20] MEDS: REMOVE OLD PATCH T-DERMAL SCH (09:00)
[2016-12-20] MEDS: NICOTINE 21 MG/24 HR PATCH T-DERMAL SCH (09:00)
[2016-12-20] MEDS: IBUPROFEN 600 MG TAB PO PRN (10:02)
[2016-12-20] MEDS: THIAMINE HCL 100 MG TAB PO SCH (10:02)
[2016-12-20] MEDS: OLANZapine ODT 15 MG TAB PO SCH (10:02)
[2016-12-20] MEDS: LORazepam 2 MG TAB PO PRN (10:02)
[2016-12-20] MEDS: DIVALPROEX DR 500 MG TABEC PO SCH (10:02)
[2016-12-20] MEDS: FOLIC ACID 1 MG TAB PO SCH (10:03)
[2016-12-20] MEDS ORDERED: ZYPR15TA PO (10:36)
[2016-12-20] MEDS ORDERED: CARN330T PO (10:36)
[2016-12-20] MEDS ORDERED: DIVA500T PO (10:36)
--- NOTE | 2016-12-20 10:36 | HHI.DS ---
Psychiatry Discharge Summary Inpatient Psychiatric care?: Yes Advance Directive: No Reason Not Provided: Due to Patient Condition Mental Health AdvanceDirective: No Health Care Proxy: No Admission Admission Date Dec 12, 2016 at 11:51 Admission Diagnosis: (1) Bipolar disorder, current episode mixed, severe, with psychotic features ICD Code: F31.64 (2) Cannabis abuse ICD Code: F12.10 Brief History Mr. Conway is a 36-year-old male with a history of bipolar illness who presented initially under an ex parte order initiated by his mother. I reviewed disorder in detail. Patient was evaluated by psychiatric nurse practitioner who recommended admission to the inpatient psychiatric unit. I see that the patient required Zyprexa 10 mg IM yesterday while in the ED. Reviewing the electronic medical record, I see no prior psychiatric consultations or admissions within our system. Patient seen and examined. Chart reviewed. Case discussed with nurse on the inpatient psychiatric unit. [facility] report that the patient has been paranoid since arriving on the unit and tried to get into bathroom following meal to vomit up his meal because he believed there was "something in it." On my examination today, patient presents with pressured speech. He exhibits some echolalia. No posturing or stereotypies. He is somewhat fidgety and hyperkinetic. He is disinhibited and at one point shows me his buttocks. When I ask why he has come into the hospital, he tells me that he was brought in for no reason. He insists that he was sitting peaceably in his house "in silent protest," although he cannot tell me what he was protesting. He is paranoid and perseverates on the gloves worn by the techs, "those gloves are like loaded firearms." He tells me he believes "the world has put a mask on me. " He reports that his sleep and appetite are fair, although mother alleges he has been eating poorly. He denies any AVH but appears internally preoccupied. He denies any suicidal or homicidal ideation but seems distinctly unreliable to contract for safety. In addition to his paranoia, a yarsanism preoccupation as noted. Affect is labile. Remainder of the psychiatric ROS is negative. Tobacco Use In Past 30 Days: 5 or More Cigarettes/Day Alcohol Use: 4 or More Times Per Week Hospital Course The patient was admitted to a locked, inpatient psychiatric unit. Appropriate precautions were in place throughout patient's hospital stay. Patient was seen and examined daily on the unit by psychiatry and also visited by counselor. Psychotropic medications were adjusted. Patient tolerated medication changes well without side effects. Patient had significant improvement in his presenting psychiatric symptomatology during the course of his hospital stay. His mood stabilized and his presenting psychotic symptoms improved. There was no evidence of any suicidality or homicidality on the inpatient unit. The patient's behavior improved with the benefit of psychopharmacologic treatment. Counselor has reached out to patient's mother prior to discharge, and she feels that the patient is improved and appropriate for discharge home. On the day of discharge: Patient seen and examined with counselor and nurse. Chart reviewed. Case discussed with nursing staff who reports that the patient has not been a behavioral problem on the inpatient unit overnight. On my examination today, the patient is requesting discharge from the inpatient psychiatric unit. He reports his mood is stable and denies any ongoing depressive or hypomanic/manic symptoms. He denies any audiovisual hallucinations and I can elicit no delusional beliefs. He reports that he slept well and is eating well. He denies any suicidal or homicidal ideation, intent or plan. He denies side effects from medications. No physical complaints. Weighing the acute, chronic , and protective factors and based on the available evidence, I machine umbrella tipper to a reasonable degree of medical certainty that the patient is at low imminent risk of harm to self or others from a mental illness as defined under the [place] and his level of function is adequate for outpatient care. Consequently, the patient does not meet criteria for ongoing involuntary psychiatric hospitalization at this time. Given that the patient is requesting discharge today and does not meet criteria for involuntary hospitalization, I must arrange for his discharge today with psychiatric follow-up as arranged by counselor. Patient is also to follow-up with primary care. I have counseled the patient to abstain from substances of abuse including cannabis. I have counseled the patient regarding warning signs for need to return to the psychiatric emergency room as part of a general safety plan. Results Blood Pressure 123 / 76 Vital Signs Date Time Temp Pulse Resp B/P Pulse Ox O2 Delivery O2 Flow Rate FiO2 12/20/16 05:57 97.0 67 15 123/76 67 Laboratory Tests Test 12/20/16 09:49 Ammonia 52 MCMOL/L (11-32) Laboratory Results Test 12/20/16 09:49 Valproic Acid (Depakene) Level 68 MCG/ML (50-100) Summary of Major Lab Results Depakote level within the therapeutic range. Ammonia level mildly elevated but there are no signs of valproate-induced hyperammonemic encephalopathy. I have started the patient on Carnitor for the management of this issue and have ordered a recheck ammonia level in a week. Summary of Procedures None done Imaging None done Pending results at discharge: No Medications # of Antipsychotic meds at D/C: 1 Approp Antipsych med options 1 - Minimum of three failed multiple trials of monotherapy. 2 - Documented plan to taper to monotherapy due to previous use of multiple meds OR cross-taper in progress at D/C. 3 - Documentation of augmentation of Clozapine. 4 - Justification other than those listed in allowable values 1-3, document here : Discharge Discharge Date: Dec 20, 2016 Discharge Diagnosis: (1) Bipolar disorder, in partial remission, most recent episode mixed Diagnosis: Principal ICD Code: F31.77 (2) Cannabis abuse Diagnosis: Secondary (counseled to quit) ICD Code: F12.10 GAF on discharge is 55. Mental Status Exam at Disch Patient is casually dressed. He is well groomed. He appears to be attending to his basic needs. He is awake and alert and oriented to person, Hospital and approximate date. No evidence of any delirium or encephalopathy. No motoric abnormalities noted. Speech is within normal limits for rate, tone and volume. Language and fund of knowledge seemed average. Focus and concentration are much improved versus admission. Mood is reportedly good and stable. Affect is appropriate, full and reactive. Thought process fairly linear with no loosening of associations. No delusional material elicited. Denies any audiovisual hallucinations. Denies suicidal or homicidal ideation, intent or plan. Insight and judgment are fair to poor. Pt Condition on Discharge: Stable Discharge Disposition: Discharge Home Discharge Instructions Diet Instructions: As Tolerated, No Restrictions Activities you can perform: Weight Bearing as Deisy Scheduled Appointment: as per counselor's notes New Orders: AMMONIA - 1 Week New Medications: Levocarnitine (Metabolic Modif) (Carnitor) 330 Mg Tab 330 MG PO TID Hyperammonemia Days 15 Ref 1 TAB Olanzapine (Zyprexa) 15 Mg Tab 15 MG PO BID Mental Health Days 15 Ref [address] (Divalproex DR) 500 Mg Tabdr 500 MG PO BID Mental Health Days 15 Ref 1 TAB Discharge Time <= 30 minutes Discharge/Advance Care Plan Health Problems: (1) Bipolar disorder, current episode mixed, severe, with psychotic features (2) Cannabis abuse Goals to promote your health * To prevent worsening of your condition and complications * To maintain your health at the optimal level Directions to meet your goals Take your medications as prescribed Follow your dietary instruction Follow activity as directed Keep your appointments as scheduled Take your immunizations and boosters as scheduled If your symptoms worsen call your PCP, if no PCP go to Urgent Care Center or Emergency Room For 29/01 questions related to your inpatient stay or results of tests pending at discharge, please contact Dr. Denis Lund at Smoking is Dangerous to Your Health. Avoid second hand smoking Denis Lund MD Dec 20, 2016 10:36
== END 2016-12-20 13:10 | disposition home or self-care (01) | DRG 885 ==
LOC: NEPE 17:42 → NEDA 12-12 11:51 → H270 12-12 12:05
PROVIDERS: ADMIT Psychiatry & Neurology Psychiatry; ATTEND Psychiatry & Neurology Psychiatry
DX: F31.77 Bipolar disorder, in partial remission, most recent episode mixed (principal); F12.10 Cannabis abuse, uncomplicated
CPT/HCPCS: 80048; 80053; 80061; 80164; 80307; 82140; 83036; 84443; 85025; 93005; 96372; G0481; J1630; J2060; L1810

== ENCOUNTER 2017-01-26 15:45 | Inpatient (IN) | payer SELFPAY ==
[~2017-01-26] VITALS: Ht 175.3 cm; Wt 116.9 kg
[~2017-01-26 15:45] MED LIST changes: +CARN330T PO; +DIVA500T PO; -IBUP600T26 PO; -MELO7.5; -Z.0.NO CURRENT MEDS; +ZYPR15TA PO
--- NOTE | 2017-01-26 17:09 | PD ---
HPI . [facility]/ agitated behavior Chief Complaint: exparte/agitated behavior Time Seen by Provider: 17:09 Travel History International Travel<30 days: No Contact w/Intl Traveler<30days: No Traveled to known affect area: No History of Present Illness HPI 36-year-old male brought in under [facility] for disruptive and agitated behavior. Apparently patient has made some remarks to his mom and members of his community stating that the world is ending in 7 days. He told his mom that he was going to kill her and himself because the affordable with ending and that they would go to a better place with his father who is . Patient tells me that he is been entangled with the system for quite some time and that he is unable to hold a job. He says he is also lost his kids as a consequence of his behaviors. He tells me all of his behaviors are related to him being involved with the system and being given medications and mistreated his whole life. He denies any medical complaints. He denies any suicide or homicidal ideation. He also denies any depression or abnormal behaviors. He tells me that he has to act out in this matter because nobody listens to him unless he "releases the evil." PFSH Past Medical History Bipolar Disorder: Yes Anxiety: No Depression: No Diminished Hearing: No Psychiatric: Yes Immunizations Current: No Social History Alcohol Use: No (UTO) Tobacco Use: Yes (UTO) Substance Use: Yes (marijuana "always") Allergies-Medications (Allergen,Severity, Reaction): Coded Allergies: No Known Allergies (Verified , 12/11/16) Reported Meds & Prescriptions Reported Meds & Active Scripts Active Carnitor (Levocarnitine (Metabolic Modif)) 330 Mg Tab 330 Mg PO TID 15 Days Zyprexa (Olanzapine) 15 Mg Tab 15 Mg PO BID [address] (Divalproex Sodium) 500 Mg Tabdr 500 Mg PO BID 15 Days Review of Systems General / Constitutional: No: Fever Eyes: No: Visual changes HENT: No: Headaches Cardiovascular: No: Chest Pain or Discomfort Respiratory: No: Shortness of Breath Gastrointestinal: No: Abdominal Pain Genitourinary: No: Dysuria Musculoskeletal: No: Pain Skin: No Rash Neurologic: No: Weakness Psychiatric: Positive: Mood Disorder, No: Depression Endocrine: No: Polydipsia Hematologic/Lymphatic: No: Easy Bruising Physical Exam Narrative GENERAL: AAO x 3, no acute distress, Well-nourished, well-developed patient. SKIN: Warm and dry. No visible rashes or bruising. multiple tattoos over body, one on the left side of upper cheek HEAD: Normocephalic and atraumatic. EYES: No scleral icterus. No injection or drainage. EOM intact, ENT: No nasal drainage noted. Mucous membranes pink. Airway patent. NECK: Supple, trachea midline. No JVD. CARDIOVASCULAR: Regular rate and rhythm without murmurs, gallops, or rubs. RESPIRATORY: Breath sounds equal bilaterally. No accessory muscle use. No rhonchi or rales. GASTROINTESTINAL: Abdomen soft, non-tender, nondistended. EXTREMITIES: No cyanosis or edema. BACK: Nontender without obvious deformity. No CVA tenderness. NEURO: CN II-12 intact, oncology radiation physician strength normal b/l, UE and LE 5/5, no focal deficits PSYCH: AAO x 3, bizarre behaviors, glancing off into the distance making gestures, Data Data Orders Restraints Violent (01/26/17 16:09) Complete Blood Count With Diff (01/26/17 16:39) Comprehensive Metabolic Panel (01/26/17 16:39) Psych Screen (01/26/17 16:39) Alcohol (Ethanol) (01/26/17 16:39) Lorazepam Inj (Ativan Inj) (01/26/17 17:15) Olanzapine Inj (Zyprexa Inj) (01/26/17 19:45) Diphenhydramine Inj (Benadryl Inj) (01/26/17 19:45) Valproic Acid (Depakene) (01/26/17 16:39) Potassium Chloride (Kcl) (01/26/17 22:45) Admit Order (Ed Use Only) (01/26/17 22:52) Vital Signs (Adult) LOR.Q12H.E (01/26/17 22:52) Activity Oob Ad Margie (01/26/17 22:52) Level Of Observation (Psych) (01/26/17 22:52) Diet Regular Basic (01/27/17 Breakfast) Basic Metabolic Panel (Bmp) (01/27/17 06:00) Lipid Profile (01/27/17 06:00) Hemoglobin (Hgb) A1c (01/27/17 06:00) Drug Screen, Random Urine (01/26/17 22:52) Labs Laboratory Tests Test 01/26/17 21:15 White Blood Count 9.7 TH/MM3 Red Blood Count 5.15 MIL/MM3 Hemoglobin 15.6 GM/DL Hematocrit 45.3 % Mean Corpuscular Volume 88.1 FL Mean Corpuscular Hemoglobin 30.4 PG Mean Corpuscular Hemoglobin 34.5 % Concent Red Cell Distribution Width 13.7 % Platelet Count 205 TH/MM3 Mean Platelet Volume 8.9 FL Neutrophils (%) (Auto) 61.8 % Lymphocytes (%) (Auto) 24.3 % Monocytes (%) (Auto) 11.6 % Eosinophils (%) (Auto) 1.9 % Basophils (%) (Auto) 0.4 % Neutrophils # (Auto) 6.0 TH/MM3 Lymphocytes # (Auto) 2.4 TH/MM3 Monocytes # (Auto) 1.1 TH/MM3 Eosinophils # (Auto) 0.2 TH/MM3 Basophils # (Auto) 0.0 TH/MM3 CBC Comment DIFF FINAL Differential Comment Sodium Level 134 MEQ/L Potassium Level 3.2 MEQ/L Chloride Level 101 MEQ/L Carbon Dioxide Level 22.1 MEQ/L Anion Gap 11 MEQ/L Blood Urea Nitrogen 29 MG/DL Creatinine 1.19 MG/DL Estimat Glomerular Filtration 85 ML/MIN Rate Random Glucose 104 MG/DL Calcium Level 8.9 MG/DL Total Bilirubin 1.6 MG/DL Aspartate Amino Transf 44 U/L (AST/SGOT) Alanine Aminotransferase 38 U/L (ALT/SGPT) Alkaline Phosphatase 100 U/L Total Protein 7.8 GM/DL Albumin 4.0 GM/DL Valproic Acid (Depakene) Level LESS THAN 3 MCG/ML Ethyl Alcohol Level LESS THAN 3 MG/DL MDM Medical Decision Making Medical Screen Exam Complete: Yes Emergency Medical Condition: Yes Medical Record Reviewed: Yes Differential Diagnosis Acute psychosis, schizophrenia, depression, drug induced mood disorder Narrative Course 36-year-old male here under [facility]. I have done an evaluation and he is actually fairly cooperative at this time. He tells me that he is very anxious and needs to calm down. He requests ativan. He was very combative towards the staff and seems easily agitated by them. I have provided Ativan. Labs have been ordered. If they are within normal limits, he will be medically cleared for psych screen. 1900: Labs still pending. I discussed case with Julius Sims PA-C and asked him to review labs to medically clear patient for psych screen. Diagnosis Primary Impression: Psychoses Qualified Code: F29 - Psychosis, unspecified psychosis type Condition: Stable Phylicia Flor Jan 26, 2017 17:09
[2017-01-26] MEDS ORDERED: LORazepam 2 MG/ML VIAL IM ONE (17:15)
[2017-01-26] MEDS ORDERED: diphenhydrAMINE HCL 50 MG/ML VIAL IM ONE (19:45)
[2017-01-26] MEDS ORDERED: OLANZapine IM 10 MG VIAL IM ONE (19:45)
--- NOTE | 2017-01-26 19:47 | PD ---
Physical Exam Narrative I was asked by previous providers review patient's labs. However patient became violent while in the psych unit and I was asked to reevaluated. Patient was found to be yelling and cursing at the top of his lungs in his room toward staff having violent outburst. Patient was also noted to be pacing around his room punching himself in the chest and with his fist raised in a fighting stance getting ready to apparently fight whoever walks near him. Data Data Orders Restraints Violent (01/26/17 16:09) Complete Blood Count With Diff (01/26/17 16:39) Comprehensive Metabolic Panel (01/26/17 16:39) Psych Screen (01/26/17 16:39) Drug Screen, Random Urine (01/26/17 16:39) Alcohol (Ethanol) (01/26/17 16:39) Lorazepam Inj (Ativan Inj) (01/26/17 17:15) Olanzapine Inj (Zyprexa Inj) (01/26/17 19:45) Diphenhydramine Inj (Benadryl Inj) (01/26/17 19:45) Valproic Acid (Depakene) (01/26/17 16:39) Potassium Chloride (Kcl) (01/26/17 22:45) Labs Laboratory Tests Test 01/26/17 21:15 White Blood Count 9.7 TH/MM3 Red Blood Count 5.15 MIL/MM3 Hemoglobin 15.6 GM/DL Hematocrit 45.3 % Mean Corpuscular Volume 88.1 FL Mean Corpuscular Hemoglobin 30.4 PG Mean Corpuscular Hemoglobin 34.5 % Concent Red Cell Distribution Width 13.7 % Platelet Count 205 TH/MM3 Mean Platelet Volume 8.9 FL Neutrophils (%) (Auto) 61.8 % Lymphocytes (%) (Auto) 24.3 % Monocytes (%) (Auto) 11.6 % Eosinophils (%) (Auto) 1.9 % Basophils (%) (Auto) 0.4 % Neutrophils # (Auto) 6.0 TH/MM3 Lymphocytes # (Auto) 2.4 TH/MM3 Monocytes # (Auto) 1.1 TH/MM3 Eosinophils # (Auto) 0.2 TH/MM3 Basophils # (Auto) 0.0 TH/MM3 CBC Comment DIFF FINAL Differential Comment Sodium Level 134 MEQ/L Potassium Level 3.2 MEQ/L Chloride Level 101 MEQ/L Carbon Dioxide Level 22.1 MEQ/L Anion Gap 11 MEQ/L Blood Urea Nitrogen 29 MG/DL Creatinine 1.19 MG/DL Estimat Glomerular Filtration 85 ML/MIN Rate Random Glucose 104 MG/DL Calcium Level 8.9 MG/DL Total Bilirubin 1.6 MG/DL Aspartate Amino Transf 44 U/L (AST/SGOT) Alanine Aminotransferase 38 U/L (ALT/SGPT) Alkaline Phosphatase 100 U/L Total Protein 7.8 GM/DL Albumin 4.0 GM/DL Valproic Acid (Depakene) Level LESS THAN 3 MCG/ML Ethyl Alcohol Level LESS THAN 3 MG/DL MDM Supervised Visit with JASSON: No Narrative Course Secondary to the patient's violent and aggressive behavior, patient was medicated with Zyprexa and Benadryl for the safety of the patient and staff. Patient was seen and examined. Labs were obtained and reviewed with the exception of urine drug screen is not been set yet. Oral potassium replacement was ordered. Patient medically cleared for further treatment and evaluation by psych. Final disposition per psych. Diagnosis Primary Impression: Hypokalemia Additional Impression: Medical clearance for psychiatric admission Condition: Stable Jovany Sims Jan 26, 2017 19:47
[2017-01-26 21:42] LABS: BASOPHIL % 0.4 % (0.0-2.0); EOSINOPHIL # 0.2 TH/MM3 (0-0.4); EOSINOPHIL % 1.9 % (0.0-4.0); HEMATOCRIT 45.3 % (39.0-51.0); HEMO FLAGS DIFF FINAL; LYMPH % 24.3 % (9.0-44.0); LYMPHOCYTE # 2.4 TH/MM3 (1.0-4.8); MEAN CELL VOLUME 88.1 FL (80.0-100.0); MEAN CORPUSCULAR HEMOGLOBIN 30.4 PG (27.0-34.0); MEAN CORPUSCULAR HGB CONC 34.5 % (32.0-36.0); MONO % 11.6 % (0.0-8.0); NEUT % 61.8 % (16.0-70.0); PLATELET COUNT 205 TH/MM3 (150-450); RED BLOOD COUNT 5.15 MIL/MM3 (4.50-5.90); RED CELL DISTRIBUTION WIDTH 13.7 % (11.6-17.2); WHITE BLOOD COUNT 9.7 TH/MM3 (4.0-11.0)
[2017-01-26 22:06] LABS: ANION GAP 11 MEQ/L (5-15); AST (GOT) 44 U/L (15-37); BICARBONATE 22.1 MEQ/L (21.0-32.0); BLOOD UREA NITROGEN 29 MG/DL (7-18); CHLORIDE 101 MEQ/L (98-107); GLOMERULAR FILTRATION RATE 85 ML/MIN (>89); POTASSIUM 3.2 MEQ/L (3.5-5.1); SODIUM (NA) 134 MEQ/L (136-145)
[2017-01-26 22:07] LABS: ALT (GPT) 38 U/L (12-78)
[2017-01-26 22:09] LABS: ALKALINE PHOSPHATASE 100 U/L (45-117); TOTAL BILIRUBIN ADULT 1.6 MG/DL (0.2-1.0)
[2017-01-26] MEDS ORDERED: POTASSIUM CHLORIDE 20 MEQ CONTROLLED RELEASE TAB PO ONE (22:45)
[2017-01-26 23:06] VITALS: BP 109/70; PULSE 70; RESP 18
[2017-01-26] MEDS ORDERED: MAGNESIUM HYDROXIDE SUSP 30 ML CUP PO PRN (23:15)
[2017-01-26] MEDS ORDERED: ALUMINUM/MAGNESIUM/SIMETH 30 ML CUP PO PRN (23:15)
[2017-01-26] MEDS ORDERED: ACETAMINOPHEN 325 MG TAB PO PRN (23:15)
[2017-01-26] MEDS ORDERED: LORazepam 2 MG/ML VIAL IM PRN (23:15)
[2017-01-27 01:02] VITALS: BP 131/86; PULSE 88; RESP 18; TEMP 97.5; O2SAT 100
[2017-01-27 06:01] VITALS: BP 117/59; PULSE 77; RESP 16; TEMP 97.9; O2SAT 98
[2017-01-27] MEDS ORDERED: LEVOCARNITINE 330 MG TAB PO SCH (09:00)
[2017-01-27] MEDS: DIVALPROEX DR 500 MG TABEC PO SCH ×2 (09:05→20:38)
--- NOTE | 2017-01-27 11:32 | HHI.HP ---
Provisional Diagnosis Admission Date Jan 26, 2017 at 22:54 Smith I. Bipolar disorder vs schizoaffective disorder Smith II. Deferred Smith III. No significant medical history Certification of Person's Competence To Provide Express and Informed Consent I have personally examined Alonso Conway , a person being served at [facility] on, Jan 27, 2017 11:14. Express and informed consent means consent voluntarily given in writing, by a competent person, after sufficient explanation and disclosure of the subject matter involved to enable the person to make a knowing and willful decision without any element of force, fraud, deceit, duress, or other form of constraint or coercion. This person is 18 years of age or older, is not now known to be incompetent to consent to treatment with a guardian advocate, and does not have a health care surrogate or proxy currently making medical treatment decisions. I have found this person to be one of the following: [] Competent to provide express and informed consent, as defined above, for voluntary admission to this facility and is competent to provide express and informed consent for treatment. He/she has the consistent capacity to make well reasoned, willful, and knowing decisions concerning his or her medical or mental health treatment. The person fully and consistently understands the purpose of the admission for examination/placement and is fully capable of personally exercising all rights assured under [place] [] Incompetent to provide express and informed consent to voluntary admission, and this is incompetent to provide express and informed consent to treatment. The person must be transferred to involuntary status and a petition for a guardian advocate filed with the Circuit Court. [X] Refusing to provide express and informed consent to voluntary admission but is competent to provide express and informed consent for treatment. The person must be discharged or transferred to involuntary status. Form shall be completed within 24 hours of a person's arrival at the receiving facility and filed in the clinical record of each person: 1. Admitted on a voluntary basis 2. Permitted to provide express and informed consent to his/her own treatment 3. Allowed to transfer from involuntary to voluntary status 4. Prior to permitting a person to consent to his or her own treatment after having been previously found incompetent to consent to treatment. History of Present Illness Capacity: Has Capacity HPI The patient is a 36-year-old man, domiciled with his mother, single, unemployed, with psychiatric history of bipolar disorder, multiple psychiatric hospitalizations, last hospitalization was here about a month ago under the care of Dr. Lund, recommendation was reviewed, noncompliant with medications, no significant medical history, brought in under [facility] for disruptive and agitated behavior. Apparently patient has made some remarks to his mom and members of his community stating that the world is ending in 7 days. He told his mom that he was going to kill her and himself because the affordable with ending and that they would go to a better place with his father who is . As per ER doctor documentation Patient tells me that he is been entangled with the system for quite some time and that he is unable to hold a job. He says he is also lost his kids as a consequence of his behaviors. He tells me all of his behaviors are related to him being involved with the system and being given medications and mistreated his whole life. He denies any medical complaints. He denies any suicide or homicidal ideation. He also denies any depression or abnormal behaviors. He tells me that he has to act out in this matter because nobody listens to him unless he "releases the evil." Posteriorly in the ER patient became agitated and aggressive needing IM medications to calm down. Today on psychiatric evaluation patient is found in his bed in the 2700 unit, he is easily arousable, patient immediately requests to be discharged as soon as possible. Patient says that he is not going to answer any question at least he is discharged right now. Patient seems to be oddly related, internally preoccupied, unpredictable. I try to explain in order to determine my next step he needs to answer some questions, but he says that he is tired to talk he is want to leave the hospital. When I asked him the reason he is here he says "Earline brought me here, I believe in earline, do you know what is a given person". When he was asked to elaborate about this idea is started coursing and threatening to get out of his bed and show my "my force". He was finally verbally deescalated. Review of Systems Constitutional: DENIES: Diaphoretic episodes, Fatigue, Fever, Weight gain, Weight loss, Chills, Dizziness, Change in appetite, Night Sweats Endocrine: DENIES: Heat/cold intolerance, Polydipsia, Polyuria, Polyphagia Eyes: DENIES: Blurred vision, Diplopia, Eye inflammation, Eye pain, Vision loss , Photosensitivity, Double Vision Ears, nose, mouth, throat: DENIES: Tinnitus, Hearing loss, Vertigo, Nasal discharge, Oral lesions, Throat pain, Hoarseness, Ear Pain, Running Nose, Epistaxis, Sinus Pain, Toothache, Odynophagia Respiratory: DENIES: Apneas, Cough, Snoring, Wheezing, Hemoptysis, Sputum production, Shortness of breath Gastrointestinal: DENIES: Abdominal pain, Black stools, Bloody stools, Constipation, Diarrhea, Nausea, Vomiting, Difficulty Swallowing, Anorexia Musculoskeletal: DENIES: Joint pain, Muscle aches, Stiffness, Joint Swelling, Back pain, Neck pain Integumentary: DENIES: Abnormal pigmentation, Nail changes, Pruritus, Rash Hematologic/lymphatic: DENIES: Bruising, Lymphadenopathy Immunologic/allergic: DENIES: Eczema, Urticaria Neurologic: DENIES: Abnormal gait, Headache, Localized weakness, Paresthesias, Seizures, Speech Problems, Tremor, Poor Balance Psychiatric: DENIES: Anxiety, Confusion, Mood changes, Depression, Hallucinations, Agitation, Suicidal Ideation, Homicidal Ideation, Delusions Past Psych History Violence risk - others (6 mos) Elevated Violence risk - self (6 mos) Elevated Substance Abuse History Drugs/Alcohol past 12 months Patient reports using marijuana, alcohol, cocaine occasionally Past Family Social History Coded Allergies: No Known Allergies (Verified , 12/11/16) Active Scripts Levocarnitine (Metabolic Modif) (Carnitor)330 Mg [id number] Mg PO TID 15 Days Ref 1 Prov:Denis Lund MD 12/20/16 Olanzapine (Zyprexa)15 Mg Tab15 Mg PO BID 15 Days Ref 1 Prov:Denis Lund MD 12/20/[address] 500 Mg [id number] Mg PO BID 15 Days Ref 1 Prov:Denis Lund MD 12/20/16 Current Medications Medications (Trade) Dose Ordered Sig/Narda Route Start Time Stop Time Status Last Admin (Ativan) 1 mg Q6H PRN PO 01/26/17 23:15 (Ativan Inj) 1 mg Q6H PRN IM 01/26/17 23:15 (Tylenol) 650 mg Q4H PRN PO 01/26/17 23:15 (Milk Of Magnesia Liq) 30 ml DAILY PRN PO 01/26/17 23:15 (Mag-Al Plus Susp Liq) 30 ml Q6H PRN PO 01/26/17 23:15 (Depakote Dr) 500 mg BID PO 01/27/17 09:00 01/27/17 09:05 (ZyPREXA) 15 mg BID PO 01/27/17 09:00 01/27/17 09:05 Patient Own Medication PT OWN MED: LEVOCARNITINE 330MG TAB TID PO 01/27/17 09:00 Hold Family History No family psychiatric history Social History Patient was born in [facility], he lives in [place] with his mother, he is unemployed, highest level of education is 12th Patient's Strengths (min. 2) Family support Physical Exam Unable to be performed due to level of psychosis and aggressiveness Vital Signs Vital Signs Date Time Temp Pulse Resp B/P Pulse Ox O2 Delivery O2 Flow Rate FiO2 01/27/17 06:01 97.9 77 16 117/59 98 Lab Results Labs Laboratory Tests Test 01/26/17 21:15 White Blood Count 9.7 TH/MM3 Red Blood Count 5.15 MIL/MM3 Hemoglobin 15.6 GM/DL Hematocrit 45.3 % Mean Corpuscular Volume 88.1 FL Mean Corpuscular Hemoglobin 30.4 PG Mean Corpuscular Hemoglobin 34.5 % Concent Red Cell Distribution Width 13.7 % Platelet Count 205 TH/MM3 Mean Platelet Volume 8.9 FL Neutrophils (%) (Auto) 61.8 % Lymphocytes (%) (Auto) 24.3 % Monocytes (%) (Auto) 11.6 % Eosinophils (%) (Auto) 1.9 % Basophils (%) (Auto) 0.4 % Neutrophils # (Auto) 6.0 TH/MM3 Lymphocytes # (Auto) 2.4 TH/MM3 Monocytes # (Auto) 1.1 TH/MM3 Eosinophils # (Auto) 0.2 TH/MM3 Basophils # (Auto) 0.0 TH/MM3 CBC Comment DIFF FINAL Differential Comment Sodium Level 134 MEQ/L Potassium Level 3.2 MEQ/L Chloride Level 101 MEQ/L Carbon Dioxide Level 22.1 MEQ/L Anion Gap 11 MEQ/L Blood Urea Nitrogen 29 MG/DL Creatinine 1.19 MG/DL Estimat Glomerular Filtration 85 ML/MIN Rate Random Glucose 104 MG/DL Calcium Level 8.9 MG/DL Total Bilirubin 1.6 MG/DL Aspartate Amino Transf 44 U/L (AST/SGOT) Alanine Aminotransferase 38 U/L (ALT/SGPT) Alkaline Phosphatase 100 U/L Total Protein 7.8 GM/DL Albumin 4.0 GM/DL Valproic Acid (Depakene) Level LESS THAN 3 MCG/ML Ethyl Alcohol Level LESS THAN 3 MG/DL Mental Status Examination Appearance man, poor hygiene, poorly cooperative, irritable Speech: Hesitant Orientation: x3 Memory: Unremarkable Thought Process: Goal Directed, Loose Association Thought Content: Bizarre thinking, Paranoid Language Adequate use of language Fund of Knowledge Unable to be assessed due to level of psychosis Hallucination Type: None Attention and Concentration: Good Suicidal Ideation: No Previous Suicide Attempts: No (denies) Homicidal Ideation: No Previous Homicide Attempts: No Insight: Poor Judgment: Poor Affect: Irritable, Oppositional Affect if Inappropriate: Flat Mood: Angry Motor Activity: Normal gait Assessment & Plan Problem List: (1) Psychoses Assessment & Plan: The patient is a 36-year-old man with psychiatric history of bipolar disorder, multiple psychiatric hospitalizations, last hospitalization was here about a month ago under the care of Dr. Lund, recommendation was reviewed, noncompliant with medications, no significant medical history, brought in under X Y[facility] for disruptive and agitated behavior. Apparently patient has made some remarks to his mom and members of his community stating that the world is ending in 7 days. He told his mom that he was going to kill her and himself because the affordable with ending and that they would go to a better place with his father who is . On psychiatric evaluation today patient seems to be oddly related, internal preoccupied, paranoid, requesting to be discharged. As per ER documentation and nursing staff patient has been aggressive and agitated, needing IM medication.. Depakote levels are suboptimal meaning the patient is not probably taking medications at home. At this moment due to the level of psychosis and unpredictable behavior patient represents a danger to self and others and needs to be admitted for psychiatric stabilization. Will consult psychiatry for second opinion. Restart olanzapine 15 mgs twice a day, Depakote 500 mg daily. Will order olanzapine 20 mg IM every 8 hours when necessary aggressive behavior and agitation. Patient should be in assault precautions. ICD Code: F29 Assessment & Plan Estimated LOS: days Problem Qualifiers (1) Psychoses: Qualified Code: F29 - Psychosis, unspecified psychosis type Jayro Can MD Jan 27, 2017 11:32
[2017-01-27 18:08] VITALS: BP 143/85; PULSE 78; RESP 18; TEMP 97.3; O2SAT 99
[2017-01-27] MEDS: LORazepam 1 MG TAB PO PRN (20:39)
[2017-01-28 05:46] VITALS: BP 112/60; PULSE 65; RESP 18; TEMP 97.6; O2SAT 98
[2017-01-28] MEDS: DIVALPROEX DR 500 MG TABEC PO SCH ×2 (08:53→21:57)
[2017-01-28] MEDS: LORazepam 1 MG TAB PO PRN ×2 (08:55→22:21)
[2017-01-28] MEDS: OLANZapine IM 10 MG VIAL IM PRN ×2 (09:30→09:31)
--- NOTE | 2017-01-28 13:19 | HHI.PYPN ---
Subjective Remarks This is a request for second opinion. Admission note was reviewed, case discussed with nursing, and patient evaluated. Per nursing, patient has been intrusive and labile and irritable. Patient interviewed in his room and presents with an oppositional and irritable affect. Poor insight into his reasons for admission. Initially denying that psychotic statements he made but then begins by saying he is "pure evil." Continues with various grandiose delusions including that he controls the president of [employer] and we should not challenge is throne. Denies suicidal or homicidal ideation intent or plan. Objective Alert: Yes [place]: Person, Place Mood: Agitated, Angry, Oppositional Affect: Restricted Memory Intact: Immediate (not formally assessed) Hallucinations: Auditory (internally stimulated) Delusions: Yes Delusion Type: Grandiose (various grandiose delusions) Suicidal: Ideation (denies) Homicidal: Ideation (denies) Insight/Judgment Poor Vitals/IOs Vital Signs Date Time Temp Pulse Resp B/P Pulse Ox O2 Delivery O2 Flow Rate FiO2 01/28/17 05:46 97.6 65 18 112/60 98 Assessment & Plan Problem List: (1) Psychoses ICD Code: F29 Assessment & Plan I agree with the first opinion to continue petition. Criteria include acute psychosis Justification for Cont. Inpt. Patient would decompensate in a less restrictive setting Problem Qualifiers (1) Psychoses: Qualified Code: F29 - Psychosis, unspecified psychosis type Matthew Bunch DO Jan 28, 2017 13:19
[2017-01-28 22:20] VITALS: BP 112/56; PULSE 86; RESP 18; TEMP 99.1; O2SAT 99
[2017-01-28] MEDS ORDERED: OLANZapine IM 10 MG VIAL IM PRN (23:15)
[2017-01-29 05:52] VITALS: BP 103/51; PULSE 70; RESP 18; TEMP 97.9; O2SAT 100
[2017-01-29] MEDS: DIVALPROEX DR 500 MG TABEC PO SCH ×2 (09:17→21:17)
[2017-01-29 11:59] LABS: ANION GAP 8 MEQ/L (5-15); BICARBONATE 24.5 MEQ/L (21.0-32.0); BLOOD UREA NITROGEN 19 MG/DL (7-18); CHLORIDE 106 MEQ/L (98-107); GLOMERULAR FILTRATION RATE 113 ML/MIN (>89); POTASSIUM 3.9 MEQ/L (3.5-5.1); SODIUM (NA) 138 MEQ/L (136-145)
--- NOTE | 2017-01-29 11:59 | HHI.PYPN ---
Subjective Remarks Patient seen and examined with counselor and nurse. Chart reviewed. Case discussed with nursing staff. Patient noted to be quite religiously preoccupied. He tells me "I'm the son of God. The truth hurts and it'll drive you to suicide. I don't have no money to take care of myself." He says that he stopped his medications after leaving the hospital last time because "they' re not the real deal." He says that instead he feels that he needs to use medical marijuana. He does say he is interested in a long-acting injectable antipsychotic. Denies side effects from medications. No physical complaints. Spoke with patient's mother over the phone. She reports that after patient left the hospital last time he became rapidly medication nonadherent and started drinking and abusing opiate pain medications. He experienced psychotic decompensation and told his mother that he was going to go see his father. His mother tells me that he wanted to take mother with him to see his father and reportedly told mother matter of factly "I'm going to have to kill you" in order to make the trip. He also reportedly believes that the world will end of this . Mother is not aware of previous trials of other agents for which there is an available long-acting injectable antipsychotic but is agreeable to such a trial after discussion of the patient' s options in this regard. Review of Systems ROS Limitations: Psychotic, Poor Historian Except as stated in HPI: all other systems reviewed are Neg Objective Alert: Yes [place]: Person, Place Mood: Agitated Affect: Restricted Memory Intact: Comment (not formally assessed) Hallucinations: Auditory (frankly internally preoccupied) Delusions: Yes Delusion Type: Grandiose (believes that he is the son of God) Suicidal: Ideation (no SI but see above) Homicidal: Ideation (no HI but fairly agitated) Insight/Judgment Poor Remarks No motor abnormalities noted. Thought process scattered. Grooming and hygiene fair at best. Labs Item Value Date Time White Blood Count 9.7 TH/MM3 01/26/172114 Hemoglobin 15.6 GM/DL 01/26/172114 Platelet Count 205 TH/MM3 01/26/172114 Sodium Level 138 MEQ/L 01/29/17899 Potassium Level 3.9 MEQ/L 01/29/17899 Chloride Level 106 MEQ/L 01/29/17899 Carbon Dioxide Level 24.5 MEQ/L 01/29/17899 Anion Gap 8 MEQ/L 01/29/17899 Blood Urea Nitrogen 19 MG/DL H 01/29/17899 Creatinine 0.93 MG/DL 01/29/17899 Aspartate Amino Transf (AST/SGOT) 44 U/L H 01/26/172114 Alanine Aminotransferase (ALT/SGPT) 38 U/L 01/26/172114 Alkaline Phosphatase 100 U/L 01/26/172114 Valproic Acid (Depakene) Level LESS THAN 3 MCG/ML L 01/26/172114 Valproic Acid (Depakene) Level 64 MCG/ML 01/29/17899 Ethyl Alcohol Level LESS THAN 3 MG/DL 01/26/172114 Vitals/IOs Vital Signs Date Time Temp Pulse Resp B/P Pulse Ox O2 Delivery O2 Flow Rate FiO2 01/29/17 05:52 97.9 70 18 103/51 100 Assessment & Plan Problem List: (1) Psychoses ICD Code: F29 Assessment & Plan Add Risperdal M tabs 1 mg twice daily for additional antipsychotic action. We might consider cross tapering Zyprexa to Risperdal if well tolerated and further might consider long-acting injectable Risperdal Consta or Invega Sustenna. Continue Depakote as ordered. Continue Zyprexa PRN agitation; I have added a caution not to administer this within 60 minutes of Ativan. Cogentin as needed for EPS. Titrate Ativan PRN to 2mg/dose given the patient's size and level of agitation. Continue to monitor on the high acuity unit. Continue other medications and care as ordered. Justification for Cont. Inpt. Impairment in reality construction. Medication changes in process. High risk for decompensation in less restrictive environment. Discharge Planning Pending psychiatric stabilization. Request HC Surrog/Guard Advoc?: Yes (I will be requesting healthcare surrogate and guardian advocate as I do not believe that the patient is presently capacitated consent for medications) Problem Qualifiers (1) Psychoses: Qualified Code: F25.0 - Schizoaffective disorder, bipolar type Denis Lund MD Jan 29, 2017 11:59
[2017-01-29 12:02] LABS: HDL CHOLESTEROL 53.7 MG/DL (40.0-60.0); LDL CHOLESTEROL 80 MG/DL (0-99)
[2017-01-29] MEDS ORDERED: BENZTROPINE MESYLATE 1 MG TAB PO PRN (13:00)
[2017-01-29] MEDS ORDERED: BENZTROPINE MESYLATE 2 MG/2 ML VIAL IM PRN (13:00)
[2017-01-29 16:30] VITALS: BP 143/89; PULSE 59; RESP 18; TEMP 98.4; O2SAT 100
[2017-01-29] MEDS ORDERED: LORazepam 2 MG/ML VIAL IM PRN (17:15)
[2017-01-29 18:10] VITALS: BP 135/73; PULSE 77; RESP 18; TEMP 98.6; O2SAT 98
[2017-01-29 18:13] LABS: HEMOGLOBIN A1b 1.5 %; HEMOGLOBIN Ao 86.3 %; HEMOGLOBIN P3 3.6 %
[2017-01-29] MEDS: LORazepam 1 MG TAB PO PRN (21:16)
[2017-01-29] MEDS: risperiDONE ODT 1 MG TAB PO SCH (21:16)
[2017-01-30 06:02] VITALS: BP 125/69; PULSE 72; RESP 16; TEMP 97.5; O2SAT 99
[2017-01-30] MEDS: risperiDONE ODT 1 MG TAB PO SCH (08:30)
[2017-01-30] MEDS: DIVALPROEX DR 500 MG TABEC PO SCH ×2 (08:30→21:16)
--- NOTE | 2017-01-30 11:54 | HHI.PYPN ---
Subjective Remarks Patient seen and examined with counselor and nurse. Chart reviewed. Case discussed in treatment team. Per nursing staff, the patient is medication compliant but continues to believe that he is the son of God. On my examination today, the patient is calmer than when I saw him yesterday. He does remain somewhat interpersonally intense. He continues to say "I'm the son of God. It's freaking people out. The TV spoke the whole thing to me." Denies side effects from medications. No SI or HI. No physical complaints. Review of Systems ROS Limitations: Psychotic, Poor Historian Except as stated in HPI: all other systems reviewed are Neg Objective Alert: Yes [place]: Person, Place Mood: Other (calmer) Affect: Blunted Memory Intact: Comment (not formally assessed) Hallucinations: Auditory (internally stimulated) Delusions: Yes Delusion Type: Grandiose (continues to believe that he is the son of God), Other (ideas of reference regarding the television) Suicidal: Ideation (no SI) Homicidal: Ideation (no HI) Insight/Judgment Poor Remarks No motor abnormalities noted. Thought process linear within delusional system. Grooming and hygiene fair. Speech less pressured. Labs Labs reviewed. Vitals/IOs Vital Signs Date Time Temp Pulse Resp B/P Pulse Ox O2 Delivery O2 Flow Rate FiO2 01/30/17 06:02 97.5 72 16 125/69 99 Assessment & Plan Problem List: (1) Psychoses ICD Code: F29 Assessment & Plan Titrate Risperdal to target psychosis to 1/2mg. Continue Zyprexa and Depakote as ordered. Continue to monitor on the high acuity unit. Continue other medications and care as ordered. Justification for Cont. Inpt. Medication changes and process. Impairment in reality construction. High risk for decompensation in less restrictive environment. Discharge Planning Pending psychiatric stabilization. Request HC Surrog/Guard Advoc?: Yes Problem Qualifiers (1) Psychoses: Qualified Code: F25.0 - Schizoaffective disorder, bipolar type Denis Lund MD Jan 30, 2017 11:54
[2017-01-30] MEDS: NICOTINE 21 MG/24 HR PATCH T-DERMAL SCH (18:00)
[2017-01-30 18:04] VITALS: BP 142/77; PULSE 82; RESP 18; TEMP 98.7; O2SAT 96
[2017-01-30] MEDS ORDERED: risperiDONE ODT 2 MG TAB PO SCH (21:00)
[2017-01-30] MEDS: REMOVE OLD NICODERM (NICOTINE) PATCH T-DERMAL SCH (21:00)
[2017-01-30] MEDS: LORazepam 1 MG TAB PO PRN (21:22)
[2017-01-31 05:46] VITALS: BP 123/78; PULSE 74; RESP 17; TEMP 97.8; O2SAT 98
[2017-01-31] MEDS: DIVALPROEX DR 500 MG TABEC PO SCH ×2 (08:57→20:29)
[2017-01-31] MEDS: NICOTINE 21 MG/24 HR PATCH T-DERMAL SCH (08:57)
[2017-01-31] MEDS ORDERED: risperiDONE ODT 1 MG TAB PO SCH (09:00)
[2017-01-31] MEDS: LORazepam 1 MG TAB PO PRN ×2 (09:03→20:30)
--- NOTE | 2017-01-31 09:41 | HHI.PYPN ---
Subjective Remarks Patient seen and examined with counselor and nurse. Chart reviewed. Case discussed with nursing staff who reports that the patient has been medication seeking for benzodiazepines, particularly IM. On my examination today, the patient remains delusional. He says that he is the son of God and further says "do you want me to lie to you? I own the world." He insists "there is no violence coming from me." He remains internally stimulated. No side effects from medications. No physical complaints. Review of Systems ROS Limitations: Psychotic, Poor Historian Except as stated in HPI: all other systems reviewed are Neg Objective Alert: Yes [place]: Person, Place Mood: Calm Affect: Euthymic Memory Intact: Comment (not formally assessed) Hallucinations: Auditory (remains int stim) Delusions: Yes Delusion Type: Grandiose Suicidal: Ideation (no SI) Homicidal: Ideation (no HI) Insight/Judgment Poor Remarks Grooming and hygiene fair. No motor abnormalities noted. Labs Labs reviewed. Vitals/IOs Vital Signs Date Time Temp Pulse Resp B/P Pulse Ox O2 Delivery O2 Flow Rate FiO2 01/31/17 05:46 97.8 74 17 123/78 98 Assessment & Plan Problem List: (1) Psychoses ICD Code: F29 Assessment & Plan Titrate Risperdal to 2mg BID. We have not yet seen significant improvement in patient's delusions (presuming these are not fixed), and we have not seen side effects from antipsychotics; these two points argue against tapering Zyprexa at this time. It is possible patient will require antipsychotic polypharmacy for stabilization. To consider SZYMANSKI. Continue Depakote as ordered. Drop Ativan PRN to 1mg/dose. Continue to monitor on the high acuity unit. Continue other medications and care as ordered. Justification for Cont. Inpt. Medication changes in process. Impairment in reality construction. High risk for decompensation in less restrictive environment. Discharge Planning Pending psychiatric stabilization Request HC Surrog/Guard Advoc?: Yes Problem Qualifiers (1) Psychoses: Qualified Code: F25.0 - Schizoaffective disorder, bipolar type Denis Lund MD Jan 31, 2017 09:41
[2017-01-31] MEDS ORDERED: LORazepam 2 MG/ML VIAL IM PRN (17:15)
[2017-01-31 18:17] VITALS: BP 153/89; PULSE 90; RESP 18; TEMP 98.7; O2SAT 99
[2017-01-31] MEDS: risperiDONE ODT 2 MG TAB PO SCH (20:30)
[2017-01-31] MEDS: REMOVE OLD NICODERM (NICOTINE) PATCH T-DERMAL SCH (20:30)
[2017-02-01 05:40] VITALS: BP 135/84; PULSE 73; RESP 18; TEMP 97.2; O2SAT 98
[2017-02-01] MEDS: risperiDONE ODT 2 MG TAB PO SCH ×2 (08:33→21:25)
[2017-02-01] MEDS: DIVALPROEX DR 500 MG TABEC PO SCH ×2 (08:33→21:25)
[2017-02-01] MEDS: NICOTINE 21 MG/24 HR PATCH T-DERMAL SCH (08:33)
[2017-02-01] MEDS: LORazepam 1 MG TAB PO PRN ×2 (08:35→21:27)
--- NOTE | 2017-02-01 09:27 | HHI.PYPN ---
Subjective Remarks Patient seen case discussed with nurse. Chart reviewed. Case d/w RN. Patient noted to be labile but not aggressive by nurse. For me today, patient continues to liken himself to [place] although he does not explicitly say he is the son of God. He is irritable and argumentative. His insight into mental illness is quite poor. No motor abnormalities. No physical complaints. Mother , present at [place], reports that patient is improved with respect to his psychosis but does feel patient would benefit from further stabilization. Review of Systems ROS Limitations: Psychotic, Poor Historian Except as stated in HPI: all other systems reviewed are Neg Objective Alert: Yes [place]: Person, Place Mood: Anxious Affect: Other (irritable) Memory Intact: Comment (not formally assessed) Hallucinations: Auditory (int stim) Delusions: Yes Delusion Type: Grandiose (?lessening) Suicidal: Ideation (no SI) Homicidal: Ideation (no HI) Insight/Judgment Poor Remarks No motor abnormalities noted. Grooming and hygiene fair. Labs Labs reviewed. Vitals/IOs Vital Signs Date Time Temp Pulse Resp B/P Pulse Ox O2 Delivery O2 Flow Rate FiO2 02/01/17 05:40 97.2 73 18 135/84 98 Assessment & Plan Problem List: (1) Psychoses ICD Code: F29 Assessment & Plan Tolerating Risperdal well. Start Invega Sustenna 234mg IM today. Will plan to administer booster dose of Sustenna after weekend. Plan for relatively sky discontinuation of PO Risperdal as prolonged oral supplementation is not required with Sustenna. Continue other psychotropics as ordered. Continue to monitor on high acuity unit. Continue other meds and care as ordered. Patient' s case presented to [facility] court and case was placed in 1 week continuance with mother as healthcare surrogate. Patient would benefit from involuntary outpatient commitment in my estimation given his poor insight, and I have initiated a referral for involuntary outpatient commitment today and will consult for a second opinion. Justification for Cont. Inpt. Medication changes in process. High risk for decompensation in less restrictive environment. Discharge Planning Pending stabilization. Outpatient commitment referral. Request HC Surrog/Guard Advoc?: Yes Problem Qualifiers (1) Psychoses: Qualified Code: F25.0 - Schizoaffective disorder, bipolar type Denis Lund MD Feb 01, 2017 09:27
[2017-02-01 15:51] VITALS: BP 150/67; PULSE 86; RESP 18; TEMP 98.6; O2SAT 99
[2017-02-01] MEDS ORDERED: PALIPERIDONE PALMITATE 234 MG/1.5 ML SYRINGE IM ONE (17:00)
[2017-02-01] MEDS: REMOVE OLD NICODERM (NICOTINE) PATCH T-DERMAL SCH (21:00)
[2017-02-02 06:04] VITALS: BP 125/76; PULSE 68; RESP 16; TEMP 97.4; O2SAT 100
[2017-02-02] MEDS: NICOTINE 21 MG/24 HR PATCH T-DERMAL SCH (09:16)
[2017-02-02] MEDS: DIVALPROEX DR 500 MG TABEC PO SCH ×2 (09:16→21:05)
[2017-02-02] MEDS: risperiDONE ODT 2 MG TAB PO SCH ×2 (09:16→21:05)
--- NOTE | 2017-02-02 11:53 | HHI.PYPN ---
Subjective Remarks Patient seen and examined with counselor and nurse. Chart reviewed. Case discussed with nursing staff. No significant behavior issues. On my exam, patient complains of poor sleep. Psychotic symptoms abating, although patient remains interpersonally intense. He is med seeking for benzos, which he calls his "chill pill," and Lortab/Percocet, reportedly for chronic back pain. I offer other medications for chronic back pain, but patient tells me, "if it's not Lortab, don't bother." Denies side effects from medications besides some mild injection site discomfort from the Invega Sustenna. No physical complaints otherwise. Review of Systems ROS Limitations: Poor Historian Except as stated in HPI: all other systems reviewed are Neg Objective Alert: Yes [place]: Person, Place Mood: Calm Affect: Other (somewhat interpersonally intense) Memory Intact: Comment (not formally assessed) Hallucinations: Other (no AVH) Delusions: No Delusion Type: Other (no delusional material today) Suicidal: Ideation (no SI) Homicidal: Ideation (no HI) Insight/Judgment Poor Remarks No motor abnormalities noted. No induration, erythema or other abnormality at the injection site. Thought processes fairly linear, although little perseverative on obtaining controlled substances as I said. Labs Labs reviewed. Vitals/IOs Vital Signs Date Time Temp Pulse Resp B/P Pulse Ox O2 Delivery O2 Flow Rate FiO2 02/02/17 06:04 97.4 68 16 125/76 100 Assessment & Plan Problem List: (1) Psychoses ICD Code: F29 Assessment & Plan Adjusts Zyprexa dosing to 10/20 mg to try to help with poor sleep. Taper Risperdal to 1mg BID. Plan for booster dose of Invega Sustenna after the weekend. Continue other medications and care as ordered. Justification for Cont. Inpt. Medication changes in process. High risk for decompensation. Discharge Planning Plan to petition court for involuntary outpatient commitment. Request HC Surrog/Guard Advoc?: Yes Problem Qualifiers (1) Psychoses: Qualified Code: F25.0 - Schizoaffective disorder, bipolar type Denis Lund MD Feb 02, 2017 11:53
[2017-02-02] MEDS: LORazepam 1 MG TAB PO PRN (17:22)
[2017-02-02 17:48] VITALS: BP 122/72; PULSE 105; RESP 16; TEMP 98.2; O2SAT 99
[2017-02-02] MEDS: REMOVE OLD NICODERM (NICOTINE) PATCH T-DERMAL SCH (21:00)
[2017-02-02] MEDS: OLANZapine 10 MG TAB PO SCH (21:06)
[2017-02-03 06:10] VITALS: BP 128/85; PULSE 68; RESP 16; TEMP 97.1; O2SAT 99
[2017-02-03] MEDS: DIVALPROEX DR 500 MG TABEC PO SCH ×2 (08:39→20:41)
[2017-02-03] MEDS: risperiDONE ODT 2 MG TAB PO SCH ×2 (08:40→20:43)
[2017-02-03] MEDS: OLANZapine 10 MG TAB PO SCH ×2 (08:43→20:43)
[2017-02-03] MEDS: NICOTINE 21 MG/24 HR PATCH T-DERMAL SCH (08:43)
--- NOTE | 2017-02-03 13:06 | HHI.PYPN ---
Subjective Remarks Pt seen and discussed with staff. He continues to fixate on [place] and states he is willing to bargain and take Tramadol. "Anything else would be blowing my mind." He states that only MD and RN can tame him. He remains disorganized and loose during evaluation. He is tolerating medications without side effects. No SI/HI Objective Alert: Yes [place]: Person, Place Mood: Calm Affect: Other (intense stare) Memory Intact: Comment (not formally assessed) Hallucinations: Other (no AVH) Delusions: No Delusion Type: Other (no delusional material today) Suicidal: Ideation (no SI) Homicidal: Ideation (no HI) Insight/Judgment poor Remarks thought process somewhat loose and disorganized Vitals/IOs Vital Signs Date Time Temp Pulse Resp B/P Pulse Ox O2 Delivery O2 Flow Rate FiO2 02/03/17 06:10 97.1 68 16 128/85 99 Assessment & Plan Problem List: (1) Psychoses ICD Code: F29 Assessment & Plan Continue current tx plan. Estimated LOS: days Justification for Cont. Inpt. impairments in social functioning and thought process Request HC Surrog/Guard Advoc?: Yes Problem Qualifiers (1) Psychoses: Qualified Code: F25.0 - Schizoaffective disorder, bipolar type Trice Brennan MD Feb 03, 2017 13:06
[2017-02-03 18:00] VITALS: BP 131/84; PULSE 100; RESP 18; TEMP 98.6
[2017-02-03] MEDS: LORazepam 1 MG TAB PO PRN (20:46)
[2017-02-03] MEDS: REMOVE OLD NICODERM (NICOTINE) PATCH T-DERMAL SCH (21:00)
[2017-02-04 05:39] VITALS: BP 114/69; PULSE 67; RESP 18; TEMP 98.3; O2SAT 99
[2017-02-04] MEDS: risperiDONE ODT 2 MG TAB PO SCH ×2 (08:24→20:22)
[2017-02-04] MEDS: DIVALPROEX DR 500 MG TABEC PO SCH ×2 (08:24→20:21)
[2017-02-04] MEDS: OLANZapine 10 MG TAB PO SCH ×2 (08:26→20:22)
[2017-02-04] MEDS: NICOTINE 21 MG/24 HR PATCH T-DERMAL SCH (08:29)
--- NOTE | 2017-02-04 12:11 | HHI.PYPN ---
Subjective Remarks Pt seen and discussed with staff. He has been cooperative with treatment and medications. No disruptive behavior on unit. No SI/HI. Pt reports that mood is better today and he has not been anxious. He is more organized today and less fixated on pain meds. Objective Alert: Yes [place]: Person, Place, Date Mood: Calm Affect: Appropriate Memory Intact: Comment (intact) Hallucinations: Other (no AVH) Delusions: No Delusion Type: Other (none) Suicidal: Ideation (no SI) Homicidal: Ideation (no HI) Insight/Judgment limited Vitals/IOs Vital Signs Date Time Temp Pulse Resp B/P Pulse Ox O2 Delivery O2 Flow Rate FiO2 02/04/17 05:39 98.3 67 18 114/69 99 Assessment & Plan Problem List: (1) Psychoses ICD Code: F29 Assessment & Plan Pt improving. Continue current medication Estimated LOS: days Justification for Cont. Inpt. risk of decompensation Request HC Surrog/Guard Advoc?: Yes Problem Qualifiers (1) Psychoses: Qualified Code: F25.0 - Schizoaffective disorder, bipolar type Trice Brennan MD Feb 04, 2017 12:11
[2017-02-04 18:18] VITALS: BP 149/80; PULSE 83; RESP 18; TEMP 98.1; O2SAT 100
[2017-02-04] MEDS: REMOVE OLD NICODERM (NICOTINE) PATCH T-DERMAL SCH (20:22)
[2017-02-04] MEDS: LORazepam 1 MG TAB PO PRN (20:24)
[2017-02-05 06:13] VITALS: BP 112/64; PULSE 77; RESP 18; TEMP 97.4; O2SAT 99
[2017-02-05] MEDS: DIVALPROEX DR 500 MG TABEC PO SCH ×2 (08:40→21:15)
[2017-02-05] MEDS: risperiDONE ODT 2 MG TAB PO SCH (08:41)
[2017-02-05] MEDS: OLANZapine 10 MG TAB PO SCH ×2 (08:41→21:15)
[2017-02-05] MEDS: NICOTINE 21 MG/24 HR PATCH T-DERMAL SCH (08:53)
[2017-02-05] MEDS ORDERED: PALIPERIDONE PALMITATE 156 MG/ML SYRINGE IM ONE (10:00)
--- NOTE | 2017-02-05 11:52 | HHI.PYPN ---
Subjective Remarks Patient seen and examined with counselor and nurse. Chart reviewed. Outpatient commitment paperwork completed and is going to be filed today. On my examination today, the patient is quite discharge focused. He remains somewhat medication seeking for Ativan. No ongoing psychotic symptoms and the patient denies SI or HI. Counselor has reached out to patient's mother/ healthcare surrogate who is agreeable to having the patient return home tomorrow before the outpatient commitment hearing but would like him to be observed for at least the day after he receives his Invega Sustenna booster injection, and this does not seem unreasonable to me. Patient denies side effects from medications. No physical complaints. Review of Systems ROS Limitations: Poor Historian Except as stated in HPI: all other systems reviewed are Neg Objective Alert: Yes [place]: Person, Place, Date Mood: Calm Affect: Appropriate (fairly appropriate, somewhat interpersonally intense) Memory Intact: Comment (intact) Hallucinations: Other (denies AVH) Delusions: No Delusion Type: Other (no delusional material) Suicidal: Ideation (denies SI) Homicidal: Ideation (denies HI) Insight/Judgment Poor Remarks No abnormal motor movements noted. Thought process fairly linear. Grooming and hygiene fair. Labs Labs reviewed. Vitals/IOs Vital Signs Date Time Temp Pulse Resp B/P Pulse Ox O2 Delivery O2 Flow Rate FiO2 02/05/17 06:13 97.4 77 18 112/64 99 Assessment & Plan Problem List: (1) Psychoses ICD Code: F29 Assessment & Plan Booster dose of Invega Sustenna today. Discontinue Risperdal as Invega Sustenna does not require oral supplementation. Continue other psychotropics as ordered. Monitor overnight. Continue other medications and care as ordered. Justification for Cont. Inpt. Medication change Discharge Planning Anticipate discharge tomorrow with plan for involuntary outpatient commitment hearing . Request HC Surrog/Guard Advoc?: Yes Problem Qualifiers (1) Psychoses: Qualified Code: F25.0 - Schizoaffective disorder, bipolar type Denis Lund MD Feb 05, 2017 11:52
[2017-02-05] MEDS: LORazepam 1 MG TAB PO PRN ×2 (13:03→21:14)
[2017-02-05 18:08] VITALS: BP 133/68; PULSE 81; RESP 18; TEMP 98.6; O2SAT 99
[2017-02-05] MEDS: REMOVE OLD NICODERM (NICOTINE) PATCH T-DERMAL SCH (21:00)
[2017-02-06 06:09] VITALS: BP 130/79; PULSE 68; RESP 20; TEMP 97.3; O2SAT 99
[2017-02-06] MEDS: NICOTINE 21 MG/24 HR PATCH T-DERMAL SCH (08:39)
[2017-02-06] MEDS: DIVALPROEX DR 500 MG TABEC PO SCH (08:39)
[2017-02-06] MEDS: OLANZapine 10 MG TAB PO SCH (08:39)
[2017-02-06] MEDS ORDERED: OLAN10TA PO (09:54)
[2017-02-06] MEDS ORDERED: PALI156P IM (09:54)
[2017-02-06] MEDS ORDERED: DIVA500T PO (09:54)
--- NOTE | 2017-02-06 09:54 | HHI.DS ---
Psychiatry Discharge Summary Inpatient Psychiatric care?: Yes Advance Directive: No Reason Not Provided: Due to Patient Condition Mental Health AdvanceDirective: No Health Care Proxy: No Admission Admission Date Jan 26, 2017 at 22:54 Admission Diagnosis: (1) Psychoses ICD Code: F29 Brief History The patient is a 36-year-old man, domiciled with his mother, single, unemployed, with psychiatric history of bipolar disorder, multiple psychiatric hospitalizations, last hospitalization was here about a month ago under the care of Dr. Lund, recommendation was reviewed, noncompliant with medications, no significant medical history, brought in under [facility] for disruptive and agitated behavior. Apparently patient has made some remarks to his mom and members of his community stating that the world is ending in 7 days. He told his mom that he was going to kill her and himself because the affordable with ending and that they would go to a better place with his father who is . As per ER doctor documentation Patient tells me that he is been entangled with the system for quite some time and that he is unable to hold a job. He says he is also lost his kids as a consequence of his behaviors. He tells me all of his behaviors are related to him being involved with the system and being given medications and mistreated his whole life. He denies any medical complaints. He denies any suicide or homicidal ideation. He also denies any depression or abnormal behaviors. He tells me that he has to act out in this matter because nobody listens to him unless he "releases the evil." Posteriorly in the ER patient became agitated and aggressive needing IM medications to calm down. Today on psychiatric evaluation patient is found in his bed in the 2700 unit, he is easily arousable, patient immediately requests to be discharged as soon as possible. Patient says that he is not going to answer any question at least he is discharged right now. Patient seems to be oddly related, internally preoccupied, unpredictable. I try to explain in order to determine my next step he needs to answer some questions, but he says that he is tired to talk he is want to leave the hospital. When I asked him the reason he is here he says "Earline brought me here, I believe in earline, do you know what is a given person". When he was asked to elaborate about this idea is started coursing and threatening to get out of his bed and show my "my force". He was finally verbally deescalated. Tobacco Use In Past 30 Days: Refused To Answer Alcohol Use: Never Hospital Course Patient was admitted to a locked, inpatient psychiatric unit. Appropriate precautions were in place throughout the patient's hospital stay. Patient was seen and examined on the unit by psychiatry and also visited by counselor. Psychotropic medications were adjusted. Patient was started on long-acting injectable Invega Sustenna. Patient tolerated medication changes well without side effects. Patient had improvement in his presenting psychiatric symptomatology. There was no evidence of any suicidality or homicidality on the inpatient unit. A petition was initiated for the patient to enter into the involuntary outpatient commitment program, and he is due to return for a hearing on this matter on 02/08. On the day of discharge: Patient seen and examined. Chart reviewed. Case discussed in treatment team. Per nursing staff, no behavioral issues overnight. On my examination today, the patient is calm if a little bit sarcastic. He is requesting discharge from the inpatient psychiatric unit today. He denies any suicidal or homicidal ideation, intent or plan on direct questioning and contracts for safety. No mood symptoms. Denies audiovisual hallucinations and I can elicit no delusional beliefs. Denies side effects from medications. No physical complaints. Weighing the acute, chronic, and protective factors and based on the available evidence, I x ray equipment servicer to a reasonable degree of medical certainty that the patient is at low imminent risk of harm to self or others from a mental illness as defined under [place] and his level of function is adequate for outpatient care. Patient is to be discharged today with psychiatric follow-up as arranged by counselor. Patient is also to follow-up with primary care. I have reviewed patient's psychotropic medications with him and highlighted the need for subsequent injections of Invega Sustenna. I have counseled the patient to abstain from substances of abuse, although I do suspect the patient remains pre- contemplative with regards to changing his pattern of use. I have recommended outpatient chemical dependency evaluation and treatment if indicated. I have counseled the patient regarding warning signs for need to return to the psychiatric emergency room as part of a general safety plan. I have reminded the patient of the need to be present for the involuntary outpatient commitment hearing on Thursday as noted above. Results Blood Pressure 130 / 79 Vital Signs Date Time Temp Pulse Resp B/P Pulse Ox O2 Delivery O2 Flow Rate FiO2 02/06/17 06:09 97.3 68 20 130/79 99 Item Value Date Time White Blood Count 9.7 TH/MM3 01/26/172114 Hemoglobin 15.6 GM/DL 01/26/172114 Platelet Count 205 TH/MM3 01/26/172114 Sodium Level 138 MEQ/L 01/29/17899 Potassium Level 3.9 MEQ/L 01/29/17899 Chloride Level 106 MEQ/L 01/29/17899 Carbon Dioxide Level 24.5 MEQ/L 01/29/17899 Blood Urea Nitrogen 19 MG/DL H 01/29/17899 Creatinine 0.93 MG/DL 01/29/17899 Aspartate Amino Transf (AST/SGOT) 44 U/L H 01/26/172114 Alanine Aminotransferase (ALT/SGPT) 38 U/L 01/26/172114 Alkaline Phosphatase 100 U/L 01/26/172114 Valproic Acid (Depakene) Level 64 MCG/ML 01/29/17899 Ethyl Alcohol Level LESS THAN 3 MG/DL 01/26/172114 Summary of Procedures None done Imaging None done Pending results at discharge: No Medications # of Antipsychotic meds at D/C: 2 Appropriate >1 Antipsych meds?: 4 Approp Antipsych med options 1 - Minimum of three failed multiple trials of monotherapy. 2 - Documented plan to taper to monotherapy due to previous use of multiple meds OR cross-taper in progress at D/C. 3 - Documentation of augmentation of Clozapine. 4 - Justification other than those listed in allowable values 1-3, document here : Required multiple antipsychotics for stabilization Discharge Discharge Date: Feb 06, 2017 Discharge Diagnosis: (1) Schizoaffective disorder, bipolar type Diagnosis: Principal (stabilized) ICD Code: F25.0 Suspect underlying substance use disorder Mental Status Exam at Disch Patient is casually dressed. Patient is well groomed. Patient is awake and alert and oriented to person and hospital at least. No evidence of delirium. No motor abnormalities appreciated. Speech is within normal limits for rate, tone, volume. Language and fund of knowledge average. Focus and concentration intact. Memory grossly intact on clinical exam. Mood is fair, and affect is full and reactive. Thought processes linear. No delusions elicited. Denies audiovisual hallucinations and does not appear internally stimulated. Denies suicidal or homicidal ideation, intent, or plan and contracts for safety. Insight and judgment poor. Pt Condition on Discharge: Stable Discharge Disposition: Discharge Home Discharge Instructions Diet Instructions: As Tolerated, No Restrictions Activities you can perform: Weight Bearing as Deisy Scheduled Appointment: as per counselor's notes New Medications: Paliperidone Palmitate Inj (Invega Sustenna Inj) 156 Mg/Ml Inj 156 MG IM Q28D This dose of Sustenna due 03/05/2017. Mental Health #1 Ref 0 VIAL Olanzapine (Olanzapine) 10 Mg Tab 10 MG PO DIRECTED 10mg PO qAM and 20mg PO qHS. Mental Health Days 15 Ref 1 TAB Continued Medications: Divalproex DR (Divalproex DR) 500 Mg Tabdr 500 MG PO BID Mental Health Days 15 Ref 1 TAB (This prescription has been renewed) Levocarnitine (Metabolic Modif) (Carnitor) 330 Mg Tab 330 MG PO TID Hyperammonemia Days 15 Ref 1 TAB Discontinued Medications: Olanzapine (Zyprexa) 15 Mg Tab 15 MG PO BID Mental Health Days 15 Ref 1 TAB Discharge Time <= 30 minutes Discharge/Advance Care Plan Health Problems: (1) Psychoses Goals to promote your health * To prevent worsening of your condition and complications * To maintain your health at the optimal level Directions to meet your goals Take your medications as prescribed Follow your dietary instruction Follow activity as directed Keep your appointments as scheduled Take your immunizations and boosters as scheduled If your symptoms worsen call your PCP, if no PCP go to Urgent Care Center or Emergency Room For 29/01 questions related to your inpatient stay or results of tests pending at discharge, please contact Dr. Denis Lund at Smoking is Dangerous to Your Health. Avoid second hand smoking Problem Qualifiers (1) Psychoses: Qualified Code: F29 - Psychosis, unspecified psychosis type Denis Lund MD Feb 06, 2017 09:54
--- NOTE | 2017-02-08 08:22 | HHI.PYPN ---
Subjective Remarks This is a late entry note dictated on the above patient. This note purpose his second opinion petition supporting [place] of the above patient. I have dictated commented and note related to my doing the second opinion form for the court out of progress note by Dr. Olive spencer that was dated on 02/02/17. It appears this was not sufficient because it was not dictated with my name. Thus this dictation. Patient is seen by me on 02/02 showing continued paranoia vigilance irritability and poor insight into his disease at that time if outpatient did meet criteria for continued stay under the [place] thus I cosigned second opinion petition supporting [place] Review of Systems Except as stated in HPI: all other systems reviewed are Neg Objective Alert: Yes [place]: Person, Place, Date Mood: Calm Affect: Appropriate (fairly appropriate, somewhat interpersonally intense) Memory Intact: Comment (intact) Hallucinations: Other (denies AVH) Delusions: No Delusion Type: Other (no delusional material) Suicidal: Ideation (denies SI) Homicidal: Ideation (denies HI) Insight/Judgment Very poor very poor Vitals/IOs Vital Signs Date Time Temp Pulse Resp B/P Pulse Ox O2 Delivery O2 Flow Rate FiO2 02/06/17 06:09 97.3 68 20 130/79 99 Assessment & Plan Problem List: (1) Psychoses ICD Code: F29 Assessment & Plan Estimated LOS: days Justification for Cont. Inpt. Patient continue psychotic delusional paranoid. If placed a lower level of care patient will decompensate severely Request HC Surrog/Guard Advoc?: Yes Problem Qualifiers (1) Psychoses: Qualified Code: F29 - Psychosis, unspecified psychosis type Bossman Kang MD Feb 08, 2017 08:22
== END 2017-02-06 10:10 | disposition home or self-care (01) | DRG 885 ==
LOC: NEDAMB 15:45 → NEDA 22:54 → H270 01-27
PROVIDERS: ADMIT Psychiatry & Neurology Psychiatry; ATTEND Psychiatry & Neurology Psychiatry
DX: F25.0 Schizoaffective disorder, bipolar type (principal); F23 Brief psychotic disorder; F22 Delusional disorders; G89.29 Other chronic pain; M54.9 Dorsalgia, unspecified; F12.90 Cannabis use, unspecified, uncomplicated; F14.90 Cocaine use, unspecified, uncomplicated; Z72.89 Other problems related to lifestyle; E87.6 Hypokalemia; Z72.0 Tobacco use; Z79.899 Other long term (current) drug therapy; Z91.14 Patient's other noncompliance with medication regimen
CPT/HCPCS: 80048; 80053; 80061; 80164; 80307; 83036; 85025; 96372; J1200; J2060; J2426

== ENCOUNTER 2018-04-29 17:30 | Inpatient (IN) ==
[2018-04-29] MEDS ORDERED: Sod Chloride 0.9% Inj 1,000 ML IV.SIG SCH (20:30)
[2018-04-29 20:55] LABS: Amphetamine Screen,Urine Neg (Neg); Barbiturate Screen,Urine Neg (Neg); Cannabinoid Screen,Urine Neg (Neg); Cocaine Screen,Urine Neg (Neg)
[2018-04-29 21:03] LABS: Opiate Screen,Urine Neg (Neg)
[2018-04-29 21:08] LABS: Alanine Aminotransferase 49 U/L (12-78); Baso # (Auto) 0.1 th/mm3 (0.0-0.2); Eos # (Auto) 0.3 th/mm3 (0.0-0.4); Eos % (Auto) 2.9 % (0.0-4.0); Hematocrit 50.4 % (39.0-51.0); Hemoglobin 18.3 gm/dL (13.0-17.0); Lymph # (Auto) 3.5 th/mm3 (1.0-4.8); Lymph % (Auto) 33.3 % (9.0-44.0); Mean Corpuscular Hemoglobin 32.7 pg (27.0-34.0); Mean Corpuscular Volume 90.1 fL (80.0-100.0); Mean Platelet Volume 8.8 fL (7.0-11.0); Mono # (Auto) 0.8 th/mm3 (0.0-0.9); Mono % (Auto) 7.9 % (0.0-8.0); Neut # (Auto) 5.8 th/mm3 (1.8-7.7); Neut % (Auto) 54.9 % (16.0-70.0); Platelet Count 238 th/mm3 (150-450); Red Blood Count 5.59 mil/mm3 (4.50-5.90); Red Cell Distribution Width 13.6 % (11.6-17.2); White Blood Count 10.5 th/mm3 (4.0-11.0)
[2018-04-29 21:11] LABS: Mean Corpuscular HGB Conc 36.3 % (32.0-36.0)
[2018-04-29 21:28] LABS: Albumin 4.2 g/dL (3.4-5.0); Alkaline Phosphatase 102 U/L (45-117); Anion Gap 18 meq/L (5-15); Aspartate Aminotransferase 22 U/L (15-37); Blood Urea Nitrogen 19 mg/dL (7-18); Calcium 8.8 mg/dL (8.5-10.1); Carbon Dioxide 17.5 meq/L (21.0-32.0); Chloride 102 meq/L (98-107); Glomerular Filtration Rate 57 mL/min (>89); Glucose,Random 82 mg/dL (74-106); Magnesium 2.5 mg/dL (1.5-2.5); Potassium 3.7 meq/L (3.5-5.1); Sodium 137 meq/L (136-145); Thyroid Stimulating Hormone 0.487 uIU/mL (0.358-3.740); Total Protein 8.9 g/dL (6.4-8.2)
[2018-04-29 21:29] LABS: Alcohol 250 mg/dL (0-5)
[2018-04-29] MEDS ORDERED: LORazepam 1 MG Tablet PO ONE (23:11)
--- NOTE | 2018-04-30 01:05 | ED ---
HPI General Chief complaint: Overdose Stated complaint: Family states mixed psych meds/with other meds Time Seen by Provider: 04/29/18 19:22 History of Present Illness HPI narrative: Patient is a 37 year old male presents to the ER with mother for psychiatric evaluation. patient has a history of schizoaffective disorder and has state mandated monthly shots of unknown antipsychotic. Patient apparently was here about a year ago, had monthly meetings with windshield repair technician according to mother and then ultimately released to an [facility]. Per mother, she manages his finances and has not found a good way to manage his finances. He is apparently generous and gives his money away to strangers and then mismanages his own money. Patient also has had a fair amount to drink tonight and is changing his history constantly. patient states he needed help to mother which is what brought him in. However, on my examination states that he is "all better" and wants to go home. Denies si/hi ideation. Very difficult to keep on task. Denies any physical complaints but states that he thinks he needs opiates. History somewhat limited by patients psychiatric disease. Related Data Home Medications Medication Instructions Recorded Confirmed lisinopril 10 mg PO DAILY 04/29/18 04/29/18 paliperidone palmitate [Invega 234 mg IM QMONTH 04/29/18 04/29/18 Sustenna] Allergies Allergy/AdvReac Type Severity Reaction Status Date / Time No Known Allergies Allergy Unverified 01/07/18 23:40 Review of Systems ROS Unobtainable ROS Unobtainable: unobtainable due to mental condition PMFSH Medical History Medical History Patient denies medical problems (Acute) Bipolar disorder (Acute) Depression (Acute) Schizophrenia (Acute) Wrist fracture, right (Acute) Social History Social History Substance History: No History of Abuse Smoking Status: Current every day smoker Tobacco Type: Cigarettes How Often Do You Have a Drink Containing Alcohol: 4 or more times a week Recent Travel in [facility] within the Last 8 Weeks: No Recent Out of Country Travel within the Last 8 Weeks: No Immunization History Tetanus Immunization: Unsure Exam Narrative Exam Narrative: GENERAL: Well-developed, wide eyes and looking around the room is possibly interacting with unseen stimuli. Smells of alcohol. SKIN: Focused skin assessment warm/dry. HEAD: Atraumatic. Normocephalic. EYES: Pupils equal and round. No scleral icterus. No injection or drainage. ENT: No nasal bleeding or discharge. Mucous membranes pink and moist. NECK: Trachea midline. No JVD. CARDIOVASCULAR: Regular rate and rhythm. No murmur appreciated. RESPIRATORY: No accessory muscle use. Clear to auscultation. Breath sounds equal bilaterally. GASTROINTESTINAL: Abdomen soft, non-tender, nondistended. Hepatic and splenic margins not palpable. MUSCULOSKELETAL: No obvious deformities. No clubbing. No cyanosis. No edema. NEUROLOGICAL: Awake and alert. No obvious cranial nerve deficits. Motor grossly within normal limits. Normal speech. PSYCHIATRIC: Bizarre affect, possibly interacting with unseen stimuli, tangential and changes his history from moment to moment. Denies suicidal or homicidal ideation. Patient I think is exhibiting some manipulative behavior to try and get opiates however he certainly is very bizarre I wonder his ability to care for himself at home. Course Initial Documented Vital Signs Temperature 98.0 F 04/29/18 17:40 Pulse Rate 120 H 04/29/18 17:40 Respiratory Rate 16 04/29/18 17:40 Blood Pressure 132/60 04/29/18 17:40 Pulse Oximetry 96 04/29/18 17:40 Last Documented Vital Signs Temperature 98.0 F 04/29/18 17:40 Pulse Rate 103 H 04/29/18 19:10 Respiratory Rate 16 04/30/18 00:50 Blood Pressure 114/62 04/29/18 19:10 Pulse Oximetry 96 04/29/18 19:10 Medical Decision Making MDM Narrative Medical decision making narrative: Patient room to the emergency department, labs do show significant alcohol intoxication., UDS is negative. Review of the patient's records show that he was indeed here for about a 10-day. In 2017 , I think the shot he is mandated take his invega. I have significant concerns the patient is compensating his chronic psychiatric condition with alcohol tonight. I had an extensive conversation with mother who states that the patient needs to see a psychiatrist. I informed her that I think that his problem was multifactorial and includes a psychosocial component as well as a substance abuse component but certainly does have a psychiatric component as well. After mom left and at the end of my shift I think the patient is gravely disabled to the point of San acts. I filled out the proper paperwork. He is medically cleared for psychiatric evaluation. Patient sleeping soundly, he did request something to sleep when he came in and took Ativan and Benadryl p.o. at my order. Patient was discussed with Soraida Sahara psychiatric screener who agrees the patient is difficult to perform a diagnostic impression on. I think that he would benefit from DIRECTOR ORACLE here MD psychiatric evaluation in the emergency department. I will yield further psychiatric diagnostic and treatment considerations to their team Medical Screen Exam Complete: Yes Emergency Medical Condition: Yes Lab Data Result diagrams: 04/29/18 20:32 04/29/18 20:32 Lab Results 04/29/18 04/29/18 04/29/18 Range/Units 20:32 20:32 20:32 WBC 10.5 (4.0-11.0) th/mm3 RBC 5.59 (4.50-5.90) mil/mm3 Hgb 18.3 H (13.0-17.0) gm/dL Hct 50.4 (39.0-51.0) % MCV 90.1 (80.0-100.0) fL MCH 32.7 (27.0-34.0) pg MCHC 36.3 H (32.0-36.0) % RDW 13.6 (11.6-17.2) % Plt Count 238 (150-450) th/mm3 MPV 8.8 (7.0-11.0) fL Prelim Diff (Auto) Slide review pending Neut % (Auto) 54.9 (16.0-70.0) % Lymph % (Auto) 33.3 (9.0-44.0) % [place] % (Auto) 7.9 (0.0-8.0) % Eos % (Auto) 2.9 (0.0-4.0) % Baso % (Auto) 1.0 (0.0-2.0) % Neut # (Auto) 5.8 (1.8-7.7) th/mm3 Lymph # (Auto) 3.5 (1.0-4.8) th/mm3 [place] # (Auto) 0.8 (0.0-0.9) th/mm3 Eos # (Auto) 0.3 (0.0-0.4) th/mm3 Baso # (Auto) 0.1 (0.0-0.2) th/mm3 WBC Differential . Diff Scan Auto diff confirmed Differential Comment . Sodium 137 (136-145) meq/L Potassium 3.7 (3.5-5.1) meq/L Chloride 102 (98-107) meq/L Carbon Dioxide 17.5 L (21.0-32.0) meq/L Anion Gap 18 H (5-15) meq/L BUN 19 H (7-18) mg/dL Creatinine 1.67 H (0.60-1.30) mg/dL Estimated GFR 57 L (>89) mL/min Random Glucose 82 (74-106) mg/dL Calcium 8.8 (8.5-10.1) mg/dL Magnesium 2.5 (1.5-2.5) mg/dL Total Bilirubin 0.3 (0.2-1.0) mg/dL AST 22 (15-37) U/L ALT 49 (12-78) U/L Alkaline Phosphatase 102 (45-117) U/L Total Protein 8.9 H (6.4-8.2) g/dL Albumin 4.2 (3.4-5.0) g/dL TSH 0.487 (0.358-3.740) uIU/mL Urine Opiates Screen Neg (Neg) Ur Barbiturates Screen Neg (Neg) Ur Amphetamines Screen Neg (Neg) U Benzodiazepines Scrn Neg (Neg) Urine Cocaine Screen Neg (Neg) U Cannabinoids Screen Neg (Neg) Serum Alcohol 250 H (0-5) mg/dL Discharge Plan Discharge Disposition Patient Disposition: 30 Still Patient Physicians Team ED Provider: Jorge Bonds Primary Care Provider: Primary Care Rachel Danielle Rxs /Orders / Referrals /Forms Prescriptions: No Action lisinopril 10 mg Tablet 10 mg PO DAILY RF: 0 paliperidone palmitate [Invega Sustenna] 234 mg/1.5 mL Syringe 234 mg IM QMONTH RF: 0 Status ED Status: Medically Cleared
[2018-04-30] MEDS ORDERED: Aluminum/Magnesium/Simethacone Susp 30 ML UDC PO PRN (15:02)
[2018-04-30 15:18] VITALS: O2SAT 98
[2018-04-30 16:19] VITALS: TEMP 98.5
[2018-05-01 05:59] VITALS: BP 133/76; PULSE 90; RESP 17
[2018-05-01 08:00] LABS: Anion Gap 7 meq/L (5-15); Blood Urea Nitrogen 18 mg/dL (7-18); Calcium 8.5 mg/dL (8.5-10.1); Carbon Dioxide 25.2 meq/L (21.0-32.0); Chloride 106 meq/L (98-107); Glomerular Filtration Rate Greater Than 89 mL/min (>89); Glucose,Random 76 mg/dL (74-106); Potassium 3.9 meq/L (3.5-5.1); Sodium 138 meq/L (136-145)
[2018-05-01 08:01] LABS: Cholesterol 186 mg/dL (120-200)
[2018-05-01 08:03] LABS: Chol/HDL Ratio 3.58 Ratio; HDL Cholesterol 51.9 mg/dL (40.0-60.0); LDL Cholesterol,Calculated 116 mg/dL (0-99); Triglycerides 93 mg/dL (42-150)
[2018-05-01] MEDS ORDERED: LORazepam 1 MG Tablet PO PRN (08:15)
[2018-05-01] MEDS ORDERED: Haloperidol Inj 5 MG/ML Ampul IV.PUSH PRN (08:15)
[2018-05-01] MEDS ORDERED: Folic Acid 1 MG Tablet PO SCH (09:00)
[2018-05-01] MEDS ORDERED: Multivitamin/Minerals Therapeutic Tablet PO SCH (09:00)
[2018-05-01] MEDS ORDERED: Lisinopril 10 MG Tablet PO SCH (09:00)
--- NOTE | 2018-05-01 11:41 | P.HPPSY ---
Provisional Diagnosis Admission Date: April 30, 2018 15:02 P[place]let I.: 1. Schizoaffective disorder, bipolar type, presently stable 2. Rule out alcohol use disorder Pawlet II.: Deferred Competence Certification of Person's Competence To Provide Express and Informed Consent I have personally examined Alonso Conway, a person being served at [facility] on, May 01, 2018 1141. Express and informed consent means consent voluntarily given in writing, by a competent person, after sufficient explanation and disclosure of the subject matter involved to enable the person to make a knowing and willful decision without any element of force, fraud, deceit, duress, or other form of constraint or coercion. This person is 18 years of age or older, is not now known to be incompetent to consent to treatment with a guardian advocate, and does not have a health care surrogate or proxy currently making medical treatment decisions. I have found this person to be one of the following: [] Competent to provide express and informed consent, as defined above, for voluntary admission to this facility and is competent to provide express and informed consent for treatment. He/she has the consistent capacity to make well reasoned, willful, and knowing decisions concerning his or her medical or mental health treatment. The person fully and consistently understands the purpose of the admission for examination/placement and is fully capable of personally exercising all rights assured [place] Incompetent to provide express and informed consent to voluntary admission, and this is incompetent to provide express and informed consent to treatment. The person must be transferred to involuntary status and a petition for a guardian advocate filed with the Circuit Court. [X] Refusing to provide express and informed consent to voluntary admission but is competent to provide express and informed consent for treatment. The person must be discharged or transferred to involuntary status. Form shall be completed within 24 hours of a person's arrival at the receiving facility and filed in the clinical record of each person: 1. Admitted on a voluntary basis 2. Permitted to provide express and informed consent to his/her own treatment 3. Allowed to transfer from involuntary to voluntary status 4. Prior to permitting a person to consent to his or her own treatment after having been previously found incompetent to consent to treatment. History of Present Illness Capacity: Has capacity Chief Complaint: San act History of Present Illness: Mr. Conway is a 37-year-old male with a history of schizoaffective disorder who was brought into the ED by his mother. According to the ED provider's note, the patient asked mother for help, and so she brought him to the ED. Patient's alcohol level on presentation here was 250. Reviewing the electronic medical record, I note that the patient was admitted under my care in January of last year. Patient seen and examined with nurse. Chart reviewed. Case discussed with nursing staff. No behavioral issues noted overnight. No evidence of any suicidality or homicidality. On my examination today, the patient is calm and cooperative. He prefers to conduct the interview in the day area. He tells me "I do not know why they San acted me." He admits to drinking a pint of liquor yesterday. He presently denies any suicidal or homicidal ideation, intent or plan. I can elicit no depressive or hypomanic/manic symptoms except that he does complain of somewhat chronically poor sleep and says that he does feel little fatigued. He says that he occasionally uses an [id number] sleep aid. He denies any audiovisual hallucinations. He denies any command auditory hallucinations to hurt self or others. I can elicit no paranoia, no ideas of reference, no feelings of thought manipulation or other delusional material. The remainder of the psychiatric ROS is negative. Patient is requesting discharge from the inpatient psychiatric unit today. Past psychiatric history: The patient has a history of schizoaffective disorder. He follows at [facility] and receives long-acting injectable Invega Sustenna. He denies a history of psychiatric admissions since he was here last. He denies a history of suicide attempts. Family history: The patient denies a family history of mental illness or suicide. Chemical dependency history: The patient denies regular use of substances. He does admit to drinking a pint of liquor before being brought into the hospital but does not describe a regular pattern of alcohol use. He denies a history of blackouts. Denies any history of DTs or seizures. Social history: The patient is living alone. His mother is reportedly his payee. He does not work and collects disability income. He has a grade 11 education. He has 3 children who reside with children's mother. He is single. He denies any history. Denies any legal history. Denies any access to guns or firearms. Denies any buddhist or spiritual believes. Denies any history of trauma. With the patient's permission I have obtained collateral information from his mother, Gloria at the number in the EMR. Gloria reports that she went to check on him, as she makes a habit of doing several times a week and found him intoxicated. The patient reportedly requested to be brought into the hospital, and so patient's mother obliged. She denies that the patient has been making any suicidal or violent statements. He has been compliant with his psychotropic medications. She is concerned that he has a drinking problem, and I have educated her regarding the [place] act. She also does not like a woman that the patient has reportedly been talking with online. She notes that he is due for his Invega Sustenna injection tomorrow and is pleased that with it will be provided to him today prior to discharge. I spent approximately 10 minutes in telephone consultation with patient's mother. I did call over to Jamal Barker to confirm dose of Invega Sustenna at 234 mg every month. Nurse has confirmed with Jamal Barker that patient is due for Invega Sustenna injection tomorrow, and he will be provided with this prior to discharge today. - Inpatient Certification Plans for Post Hospital Care: Home Review of Systems All other systems reviewed negative except as [facility] - History History Provided By: Patient - Medical History Medical History: Medical History (Last Updated 04/29/18 @ 19:06 by Anais Ryder) Patient denies medical problems (Acute) Bipolar disorder Depression Schizophrenia Wrist fracture, right - Tobacco History Second Hand Smoke Exposure: No Tobacco Use In Past 30 Days: Yes Smoking Status: Current every day smoker Tobacco Type: Cigarettes - Alcohol History How Often Do You Have a Drink Containing Alcohol: 4 or more times a week - Substance Use History Substance History: Active Abuse - Substance Use Type Alcohol Status: Active Route Used: By Mouth Reason for Use: Feels Good Comment: DENIES ANY SUBSTANCE ABUSE OTHER THAN ALCOHOL. - Travel History Recent Travel in the [place] Within the Last 8 Weeks: No Recent Travel Out of the Country Within the Last 8 Weeks: No - Immunization History Tetanus Immunization: <5 Years Hx Influenza Vaccine This Season: No Quality Measures - Psychiatric History Psychological trauma history: See above - Patient Strengths Patient's strengths (minimum of 2): Attending to basic needs. Verbally fluent. Medications and Allergies Active Medications: Active Medications Al Hydrox/Mg Hydrox/Simethicone (Mag-Al Plus Susp Liq) 30 ml PO Q6H PRN PRN Reason: DYSPEPSIA Al Hydroxide/Mg Hydroxide (Milk Of Magnesia Liq) 30 ml PO Q12H PRN PRN Reason: Mild Constipation Flumazenil (Romazecon Inj) 0.2 mg IV.PUSH Q1M PRN PRN Reason: OVERSEDATION Folic Acid (Folic Acid) 1 mg PO DAILY [facility] Stop: 05/06/18 08:59 Last Admin: 05/01/18 08:33 Dose: 1 mg Haloperidol Lactate (Haldol Inj) 1 mg IV.PUSH Q15M PRN PRN Reason: for severe agitation Lisinopril (Prinivil) 10 mg PO DAILY [facility] Last Admin: 05/01/18 08:30 Dose: 10 mg Lorazepam (Ativan) 1 mg PO Q4H PRN PRN Reason: for CIWA 8-10 Lorazepam (Ativan) 2 mg PO Q2H PRN PRN Reason: for CIWA 11-14 Lorazepam (Ativan Inj) 2 mg IV.PUSH Q2H PRN PRN Reason: for CIWA 11-14 Lorazepam (Ativan Inj) 2 mg IV.PUSH Q1H PRN PRN Reason: for CIWA 15-20 Lorazepam (Ativan Inj) 2 mg IV.PUSH Q15M PRN PRN Reason: for CIWA > 20 Lorazepam (Ativan Inj) 1 mg IV.PUSH Q4H PRN PRN Reason: for CIWA 8-10 Multivitamins/Minerals (Theragran-M) 1 tab PO DAILY [facility] Stop: 05/06/18 08:59 Last Admin: 05/01/18 08:32 Dose: 1 tab Thiamine HCl (Vitamin B1) 100 mg PO DAILY [facility] Last Admin: 05/01/18 08:32 Dose: 100 mg Allergies Allergy/AdvReac Type Severity Reaction Status Date / Time No Known Allergies Allergy Unverified 01/07/18 23:40 Home Medications Medication Instructions Recorded Confirmed Type lisinopril 10 mg PO DAILY 04/29/18 04/29/18 History Results - Labs CBC & Chem 7: 04/29/18 20:32 05/01/18 06:46 Labs: Laboratory Results - last 24 hr 05/01/18 06:46 Sodium 138 Potassium 3.9 Chloride 106 Carbon Dioxide 25.2 Anion Gap 7 BUN 18 Creatinine 1.05 Estimated GFR Greater than 89 Random Glucose 76 Calcium 8.5 Triglycerides 93 Cholesterol 186 LDL Cholesterol, Calc 116 H HDL Cholesterol 51.9 Cholesterol/HDL Ratio 3.58 Labs reviewed. Exam Vital signs: Vital Signs 04/30/18 13:00 04/30/18 15:30 04/30/18 16:17 Temperature 98.5 F Pulse Rate 81 90 95 H Respiratory Rate 18 20 18 Blood Pressure 129/76 146/77 H 144/94 H Pulse Oximetry 98 98 98 05/01/18 05:58 Temperature 98.5 F Pulse Rate 90 Respiratory Rate 17 Blood Pressure 133/76 Pulse Oximetry 98 Intake & Output 04/30/18 05/01/18 05/01/18 18:59 06:59 18:59 Weight 124.3 kg Other: Weight On Admission 124.3 kg Narrative: Physical examination was completed by ED provider. On my examination today, the patient appears to be in no acute physical distress. No motor abnormalities noted. No signs of intoxication or withdrawal noted and the patient is clinically sober. Labs and vital signs reviewed. Mental Status Examination Appearance: Appropriate Consciousness: Alert Orientation: x4 Motor Activity: Other (No motoric abnormalities noted) Speech: Unremarkable Language: Adequate Fund of Knowledge: Adequate Attention and Concentration: Adequate Memory: Unremarkable Mood: Appropriate Affect: Appropriate Thought Process & Associations: Intact, Logical, Goal directed, Linear Thought Content: Appropriate Hallucination Type: None Delusion Type: None Suicidal Ideation: No Suicidal Plan: No Suicidal Intention: No Homicidal Ideation: No Homicidal Plan: No Homicidal Intention: No Mental Status Exam Remarks: Insight and judgment are fair Assessment and Plan - Assessment (1) Schizoaffective disorder, bipolar type Code(s): F25.0 - Schizoaffective disorder, bipolar type Status: Acute - Plan Plan: This is a 37-year-old male with psychiatric history as detailed above who is presently admitted to the inpatient psychiatric unit under a San act. On my evaluation today, the patient denies any suicidal or homicidal ideation. I can elicit no symptoms consistent with decompensated mental illness as defined under the [place] act in this patient at this time. He appears to be attending to his basic needs. Collateral from patient's mother does not raise any red flags. Synthesizing this information and based on the available evidence, I parking meter servicer that the patient does not meet the San act criteria. The patient is requesting discharge from the inpatient psychiatric unit today, and I have no basis to retain him over his objection. He will be provided with his Invega Sustenna injection prior to discharge today. Psychiatric follow-up as arranged by counselor. Patient is also to follow up with primary care. I have counseled the patient to abstain from substances of abuse and I recommended chemical dependency evaluation and treatment on an outpatient basis. I have counseled the patient regarding warning signs for need to return to the psychiatric emergency room as part of a general safety plan. I will provide the patient with a prescription for his next dose of Invega Sustenna. This note serves also as my discharge summary. Justification for Continued Inpatient Stay: N/A.
[2018-05-01] MEDS ORDERED: Paliperidone Inj 234 MG/1.5 ML Syringe IM ONE (13:00)
--- NOTE | 2018-05-01 15:38 | ECG ---
Date Performed: 05/01/2018 Time Performed: 11:25:57 PTAGE: 37 years EKG: Sinus rhythm NORMAL ECG No significant change from prior electrocardiogram. PREVIOUS TRACING : 01/08/2018 00.08 DOCTOR: Stephane Garcia Interpretating Date/Time 05/01/2018 15:37:13
[2018-05-01 20:46] LABS: Hemoglobin A1c 4.8 % (4.3-6.0)
== END 2018-05-01 13:45 | disposition home or self-care (01) ==
LOC: NEPD 17:30 → NEDA 04-30 15:02 → H270 04-30 15:55
PROVIDERS: ADMIT Psychiatry & Neurology Psychiatry; ATTEND Psychiatry & Neurology Psychiatry